=== PATIENT | male | born 1945 | race Caucasian/White ===

== ENCOUNTER 2017-02-24 08:26 | Inpatient (IN) | payer OTHER, MEDICARE ==
[~2017-02-24] VITALS: Ht 170.2 cm; Wt 53.0 kg
[2017-02-24] VITALS (7 sets, daily range): BP systolic 108–154; BP diastolic 57–97; PULSE 76–105; RESP 18–20; TEMP 96.9–98; O2SAT 95–98
[2017-02-24] MEDS ORDERED: SODIUM CHLOR 0.9% 1000 ML INJ 1,000 ML IV ONE (08:37)
--- NOTE | 2017-02-24 08:40 | PD ---
HPI Chief Complaint: altered mental status Time Seen by Provider: 08:36 Travel History International Travel<30 days: No Contact w/Intl Traveler<30days: No History of Present Illness HPI This is a 71 year old male who has a history of dementia and alcoholism who presents to the emergency department having been found by his family on a couch incontinent of urine, sleepy, appearing to have had a seizure. Patient has a history of seizures in the past. He is supposed to be on Dilantin. He drinks alcohol every day. EMS reports that both the patient and his son were poor historians. PFSH Past Medical History Depression: Yes Cancer: No Cardiovascular Problems: No Diminished Hearing: No Endocrine: No Gastrointestinal Disorders: No Genitourinary: No Immune Disorder: No Implanted Vascular Access Dvce: No Musculoskeletal: No Neurologic: Yes (LEFT SUBDURAL HYGROMAS WITH CRANIOTOMY NOV 2012) Reproductive: No Respiratory: No Seizures: Yes Past Surgical History Other Surgery: No Social History Alcohol Use: Yes (multiple years of drinking per son) Tobacco Use: Yes (1 PACK PER MONTH) Substance Use: No Allergies-Medications (Allergen,Severity, Reaction): Coded Allergies: No Known Allergies (Unverified , 02/24/17) UNOBTAINABLE (Unverified , 07/11/16) Reported Meds & Prescriptions Reported Meds & Active Scripts Active No Active Prescriptions or Reported Medications Review of Systems ROS Limitations: Poor Historian Physical Exam Narrative GENERAL: Threatened, frail, tremulous SKIN: Focused skin assessment warm and dry. HEAD: Atraumatic. Normocephalic. EYES: Pupils equal and round. No injection or drainage. ENT: Moist mucous membranes NECK: Trachea midline. CARDIOVASCULAR: Tachycardic. No murmur appreciated. RESPIRATORY: Clear to auscultation. Breath sounds equal bilaterally. GASTROINTESTINAL: Abdomen soft, non-tender, nondistended. MUSCULOSKELETAL: No obvious deformities. NEUROLOGICAL: Oriented to person but not time or place, appears to have some right sided neglect, moving all extremities, unable to follow commands for a thorough neurologic exam, seems to have expressive aphasia PSYCHIATRIC: Poor insight and judgment. Data Data Last Documented VS Vital Signs Date Time Temp Pulse Resp B/P Pulse Ox O2 Delivery O2 Flow Rate FiO2 02/24/17 11:08 99 18 125/62 97 Room Air 02/24/17 08:38 98.0 Orders Complete Blood Count With Diff (02/24/17 08:37) Alcohol (Ethanol) (02/24/17 08:37) Phenytoin (Dilantin) (02/24/17 08:37) Ct Brain W/O Iv Contrast(Rout) (02/24/17 ) Blood Glucose (02/24/17 08:37) Ecg Monitoring (02/24/17 08:37) Iv Access Insert/Monitor (02/24/17 08:37) Oximetry (02/24/17 08:37) Comprehensive Metabolic Panel (02/24/17 08:37) Sodium Chlor 0.9% 1000 Ml Inj (Ns 1000 M (02/24/17 08:37) Sodium Chloride 0.9% Flush (Ns Flush) (02/24/17 08:45) Lorazepam Inj (Ativan Inj) (02/24/17 08:45) Thiamine Inj (Thiamine Inj) (02/24/17 08:45) Urinalysis - C+S If Indicated (02/24/17 08:37) Cath For Specimen (02/24/17 08:38) Fosphenytoin Inj (Cerebyx Inj) (02/24/17 11:30) Labs Laboratory Tests Test 02/24/17 02/24/17 02/24/17 09:39 09:40 10:45 Urine Color YELLOW Urine Turbidity CLEAR Urine pH 6.5 Urine Specific [place] 1.008 Urine Protein NEG mg/dL Urine Glucose (UA) NEG mg/dL Urine Ketones TRACE mg/dL Urine Occult Blood SMALL Urine Nitrite NEG Urine Bilirubin NEG Urine Urobilinogen LESS THAN 2.0 MG/DL Urine Leukocyte Esterase NEG Urine RBC 1 /hpf Urine WBC 1 /hpf Microscopic Urinalysis Comment CULT NOT INDICATED White Blood Count 7.2 TH/MM3 Red Blood Count 4.00 MIL/MM3 Hemoglobin 14.6 GM/DL Hematocrit 41.4 % Mean Corpuscular Volume 103.4 FL Mean Corpuscular Hemoglobin 36.5 PG Mean Corpuscular Hemoglobin 35.3 % Concent Red Cell Distribution Width 13.3 % Platelet Count 243 TH/MM3 Mean Platelet Volume 7.7 FL Neutrophils (%) (Auto) 86.4 % Lymphocytes (%) (Auto) 6.2 % Monocytes (%) (Auto) 6.9 % Eosinophils (%) (Auto) 0.0 % Basophils (%) (Auto) 0.5 % Neutrophils # (Auto) 6.2 TH/MM3 Lymphocytes # (Auto) 0.4 TH/MM3 Monocytes # (Auto) 0.5 TH/MM3 Eosinophils # (Auto) 0.0 TH/MM3 Basophils # (Auto) 0.0 TH/MM3 CBC Comment DIFF FINAL Differential Comment Sodium Level 138 MEQ/L Potassium Level 4.3 MEQ/L Chloride Level 101 MEQ/L Carbon Dioxide Level 27.8 MEQ/L Anion Gap 9 MEQ/L Blood Urea Nitrogen 7 MG/DL Creatinine 0.90 MG/DL Estimat Glomerular Filtration 83 ML/MIN Rate Random Glucose 122 MG/DL Calcium Level 8.0 MG/DL Total Bilirubin 1.9 MG/DL Aspartate Amino Transf 90 U/L (AST/SGOT) Alanine Aminotransferase 39 U/L (ALT/SGPT) Alkaline Phosphatase 77 U/L Total Protein 6.0 GM/DL Albumin 3.1 GM/DL Phenytoin (Dilantin) Level LESS THAN 0.4 MCG/ML Ethyl Alcohol Level LESS THAN 3 MG/DL MDM Medical Decision Making Medical Screen Exam Complete: Yes Emergency Medical Condition: Yes Interpretation(s) Afebrile, mild tachycardia, hypertensive No leukocytosis Macrocytosis Total bilirubin is 1.9, patient has reported history of chronic alcoholism Dilantin level is less than 0.4 Differential Diagnosis Seizure, hemorrhagic stroke, ischemic stroke, alcoholism, medication noncompliance Narrative Course This is a 71-year-old male who presents to the emergency department having a suspected seizure at home. I don't have any family to obtain history from and I tried to call both his son and his daughter but they didn't answer. On exam he appears to have some expressive aphasia, doesn't follow commands appropriately, and seems to have some right sided neglect. It's unclear what time these symptoms started so I don't think he is a TPA candidate. Labs were obtained which were reassuring. CT was negative for intracranial hemorrhage. Patient was given a load of Dilantin given he's been on it in the past, as well as a milligram of Ativan in the setting of likely early alcohol withdrawal and patient will be admitted for possible stroke evaluation. Diagnosis Primary Impression: Altered mental status Qualified Code: R41.82 - Altered mental status, unspecified altered mental status type Admitting Information Admitting Physician Requests: Admit Referrals: Smooth Nelson PhD MD Additional Instructions: Take Dilantin every day. Follow-up with a neurologist as soon as possible. Med/Other Pt SpecificInfo: Prescription(s) given Scripts Phenytoin Extended 100 Mg [id number] Mg PO TID #90 CAP Ref 0 Prov:Janel Blanca MD 02/24/17 Janel Blanca MD Feb 24, 2017 08:40
[2017-02-24] MEDS ORDERED: SODIUM CHLORIDE 0.9% FLUSH 10 ML FLUSH IVF PRN (08:45)
[2017-02-24] MEDS ORDERED: THIAMINE INJ 100 MG in SODIUM CHLORIDE 0.9% INJ 100 ML IV ONE (08:45)
[2017-02-24] MEDS ORDERED: LORazepam 2 MG/ML VIAL IVS ONE (08:45)
--- NOTE | 2017-02-24 09:32 | RADRPT ---
EXAM DATE/TIME: 02/24/2017 09:13 [facility] COMPARISON: MRI BRAIN W & W/O CONTRAST, November 06, 2014, 14:09. CT BRAIN W/O CONTRAST, July 12, 2016, 0: 16. INDICATIONS : Altered mental status, patient found down by family. Patient also had a seizure today. RADIATION DOSE: 35.12 CTDIvol (mGy) MEDICAL HISTORY : Seizures. Trauma brain injury,sub dural hygroma SURGICAL HISTORY : Craniotomy. ENCOUNTER: Initial ACUITY: 1 day PAIN SCALE: Non-responsive LOCATION: cranial TECHNIQUE: Multiple contiguous axial images were obtained of the head. Using automated exposure control and adj ustment of the mA and/or kV according to patient size, radiation dose was kept as low as reasonably a chievable to obtain optimal diagnostic quality images. FINDINGS: There is no evidence for intracranial hemorrhage, mass effect, mass lesions, or edema. The visualize d bony structures appear intact. Slight degree of brain atrophy is seen. Slight periventricular whit e matter changes are seen nonspecific mostly consistent with chronic small vessel ischemic changes. There are no signs of acute infarction for technique. The left optical lens is dislocated and lies in the dependent portion of vitreous body. CONCLUSION: 1. Slight atrophic and small vessel ischemic changes without any evidence for acute hemorrhage or mas s effect. 2. Dislocated left optical lens. Rl Amaro MD on February 24, 2017 at 9:24 Board Certified Radiologist. This report was verified electronically.
[2017-02-24 10:11] LABS: AUTOMATED NEUTROPHIL # 6.2 TH/MM3 (1.8-7.7); BASOPHIL % 0.5 % (0.0-2.0); HEMATOCRIT 41.4 % (39.0-51.0); HEMO FLAGS DIFF FINAL; LYMPH % 6.2 % (9.0-44.0); LYMPHOCYTE # 0.4 TH/MM3 (1.0-4.8); MEAN CELL VOLUME 103.4 FL (80.0-100.0); MEAN CORPUSCULAR HEMOGLOBIN 36.5 PG (27.0-34.0); MEAN CORPUSCULAR HGB CONC 35.3 % (32.0-36.0); MONO % 6.9 % (0.0-8.0); NEUT % 86.4 % (16.0-70.0); PLATELET COUNT 243 TH/MM3 (150-450); RED CELL DISTRIBUTION WIDTH 13.3 % (11.6-17.2); WHITE BLOOD COUNT 7.2 TH/MM3 (4.0-11.0)
[2017-02-24 10:13] LABS: BLOOD, URINE SMALL (NEG); GLUCOSE,URINE NEG (NEG); KETONE, URINE TRACE mg/dL (NEG); NITRITE,URINE NEG (NEG); PH, URINE 6.5 (5.0-8.5); URINE COLOR YELLOW (YELLW/STRAW)
[2017-02-24 10:25] LABS: COMMENT (UR) CULT NOT INDICATED; CULTURE IF INDICATED CULT NOT INDICATED
[2017-02-24 11:25] LABS: ALT (GPT) 39 U/L (12-78); ANION GAP 9 MEQ/L (5-15); AST (GOT) 90 U/L (15-37); BICARBONATE 27.8 MEQ/L (21.0-32.0); BLOOD UREA NITROGEN 7 MG/DL (7-18); CHLORIDE 101 MEQ/L (98-107); GLOMERULAR FILTRATION RATE 83 ML/MIN (>89); POTASSIUM 4.3 MEQ/L (3.5-5.1); SODIUM (NA) 138 MEQ/L (136-145)
[2017-02-24 11:27] LABS: ALKALINE PHOSPHATASE 77 U/L (45-117); TOTAL BILIRUBIN ADULT 1.9 MG/DL (0.2-1.0)
[2017-02-24] MEDS ORDERED: FOSPHENYTOIN INJ 1,000 MGPE in SODIUM CHLORIDE 0.9% INJ 50 ML IV ONE (11:30)
[2017-02-24] MEDS ORDERED: PHEN100C PO (11:38)
[2017-02-24] MEDS ORDERED: GLUCAGON 1 MG/ML VIAL IM/SQ PRN (12:15)
[2017-02-24] MEDS ORDERED: DEXTROSE 50% IN WATER 50 ML VIAL(D50) IV PUSH PRN (12:15)
[2017-02-24] MEDS ORDERED: LORazepam 2 MG/ML VIAL IV PUSH ONE ×2 (12:45→14:45)
[2017-02-24] MEDS ORDERED: ASPIRIN 81 MG CHEW TAB CHEW ONE (12:45)
[2017-02-24] MEDS ORDERED: PHENYTOIN 100 MG PO SCH (13:00)
[2017-02-24] MEDS ORDERED: PHENYTOIN SODIUM 100 MG CAP PO SCH (14:00)
--- NOTE | 2017-02-24 14:13 | HHI.HP ---
[facility] Service [facility] Primary Care Physician No Primary Care Physician Admission Diagnosis aphasia Diagnoses: Chief Complaint: Aphasia Travel History International Travel<30 Days: No Contact w/Intl Traveler <30 Da: No Traveled to Known Affected Are: No History of Present Illness This is a pleasant 71 year old male who has a history of dementia and alcoholism who presents to the emergency department having been found by his family on a couch incontinent of urine, sleepy, appearing to have had a seizure. Patient has a history of seizures in the past. He is supposed to be on Dilantin. He drinks alcohol every day. EMS reports that both the patient and his son were poor historians. Seen in Emergency room not able to take much history from the patient, he has history of seizure, Non compliance and ETOHism. 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 he had one Gram of Fosphenytoin, will continue Dilantin. Neurology specialist consult. he has Aphasia asked for Neurology specialist consult Past Family Social History Past Medical History Depression Left Subdural Hygromas with Craniotomy November 2012 Seizure disorder Past Surgical History Left subdural hematoma status post craniotomy in 2012 Reported Medications Current Medications Medications (Trade) Dose Ordered Sig/Emily Route Start Time Stop Time Status Last Admin (Dilantin) 100 mg Q8HR PO 02/24/17 14:00 (Aspirin) 325 mg DAILY PO 02/25/17 09:00 (NS Flush) 2 ml BID IV FLUSH 02/24/17 21:00 Sodium Chloride 2 ml 2 ml UNSCH PRN IV FLUSH 02/24/17 12:15 (NS 1000 ml Inj) 1,000 ml @ 70 mls/hr [id number] IV 02/24/17 12:07 (Pravachol) 40 mg HS PO 02/24/17 21:00 (D50w (Vial) Inj) 25 ml UNSCH PRN IV PUSH 02/24/17 12:15 (Glucagon Inj) 1 mg UNSCH PRN IM/SQ 02/24/17 12:15 (Lovenox Inj) 40 mg Q24H SQ 02/24/17 13:00 Allergies: Coded Allergies: No Known Allergies (Unverified , 02/24/17) UNOBTAINABLE (Unverified , 07/11/16) Active Ordered Medications Current Medications Medications (Trade) Dose Ordered Sig/Emily Route Start Time Stop Time Status Last Admin (Dilantin) 100 mg Q8HR PO 02/24/17 14:00 (Aspirin) 325 mg DAILY PO 02/25/17 09:00 (NS Flush) 2 ml BID IV FLUSH 02/24/17 21:00 Sodium Chloride 2 ml 2 ml UNSCH PRN IV FLUSH 02/24/17 12:15 (NS 1000 ml Inj) 1,000 ml @ 70 mls/hr [id number] IV 02/24/17 12:07 02/24/17 14:14 (Pravachol) 40 mg HS PO 02/24/17 21:00 (D50w (Vial) Inj) 25 ml UNSCH PRN IV PUSH 02/24/17 12:15 (Glucagon Inj) 1 mg UNSCH PRN IM/SQ 02/24/17 12:15 (Lovenox Inj) 40 mg Q24H SQ 02/24/17 13:00 02/24/17 14:15 Family History Asked to his son and states No for Hypertension, DM II or cancer Social History Alcohol abuse tobacco dependence 1 pack per month Physical Exam Vital Signs Vital Signs Date Time Temp Pulse Resp B/P Pulse Ox O2 Delivery O2 Flow Rate FiO2 02/24/17 12:28 98 21 02/24/17 11:08 99 18 125/62 97 Room Air 02/24/17 08:44 105 18 96 Room Air 02/24/17 08:42 96 Room Air 02/24/17 08:38 98.0 105 19 154/97 96 Physical Exam GENERAL: Threatened, frail, tremulous SKIN: Focused skin assessment warm and dry. HEAD: Atraumatic. Normocephalic. EYES: Pupils equal and round. No injection or drainage. ENT: Moist mucous membranes NECK: Trachea midline. CARDIOVASCULAR: Tachycardic. No murmur appreciated. RESPIRATORY: Clear to auscultation. Breath sounds equal bilaterally. GASTROINTESTINAL: Abdomen soft, non-tender, nondistended. MUSCULOSKELETAL: No obvious deformities. NEUROLOGICAL: Oriented to person but not time or place, appears to have some right sided neglect, moving all extremities, unable to follow commands for a thorough neurologic exam, seems to have expressive aphasia PSYCHIATRIC: Poor insight and judgment. Laboratory Laboratory Tests Test 02/24/17 02/24/17 02/24/17 09:39 09:40 10:45 Urine Color YELLOW Urine Turbidity CLEAR Urine pH 6.5 Urine Specific [place] 1.008 Urine Protein NEG Urine Glucose (UA) NEG Urine Ketones TRACE Urine Occult Blood SMALL Urine Nitrite NEG Urine Bilirubin NEG Urine Urobilinogen LESS THAN 2.0 Urine Leukocyte Esterase NEG Urine RBC 1 Urine WBC 1 Microscopic Urinalysis Comment CULT NOT INDICATED White Blood Count 7.2 Red Blood Count 4.00 Hemoglobin 14.6 Hematocrit 41.4 Mean Corpuscular Volume 103.4 Mean Corpuscular Hemoglobin 36.5 Mean Corpuscular Hemoglobin 35.3 Concent Red Cell Distribution Width 13.3 Platelet Count 243 Mean Platelet Volume 7.7 Neutrophils (%) (Auto) 86.4 Lymphocytes (%) (Auto) 6.2 Monocytes (%) (Auto) 6.9 Eosinophils (%) (Auto) 0.0 Basophils (%) (Auto) 0.5 Neutrophils # (Auto) 6.2 Lymphocytes # (Auto) 0.4 Monocytes # (Auto) 0.5 Eosinophils # (Auto) 0.0 Basophils # (Auto) 0.0 CBC Comment DIFF FINAL Differential Comment Sodium Level 138 Potassium Level 4.3 Chloride Level 101 Carbon Dioxide Level 27.8 Anion Gap 9 Blood Urea Nitrogen 7 Creatinine 0.90 Estimat Glomerular Filtration 83 Rate Random Glucose 122 Calcium Level 8.0 Total Bilirubin 1.9 Aspartate Amino Transf 90 (AST/SGOT) Alanine Aminotransferase 39 (ALT/SGPT) Alkaline Phosphatase 77 Total Protein 6.0 Albumin 3.1 Phenytoin (Dilantin) Level LESS THAN 0.4 Ethyl Alcohol Level LESS THAN 3 Result Diagram: 02/24/17 0940 02/24/17 1045 Imaging Last Impressions Head CT 02/24/17 0000 Signed Impressions: Service Date/Time: Friday, February 24, 2017 09:13 - CONCLUSION: 1. Slight atrophic and small vessel ischemic changes without any evidence for acute hemorrhage or mass effect. 2. Dislocated left optical lens. Rl Amaro MD Assessment and Plan Assessment and Plan 1. Ischemic Stroke 2. Seizure Disorder, status post Fosphenytoin 1 gram loading dose and continue Dilantin 100 mg TID Seizure precautions and fall precautions, Telemetry, PT, OT and Speech Therapy, CT brain did not revealed pathology, Neurology specialist consult. 3. Severe medical non compliance. 4. ETOH abuse, continue Thiamine, Multivitamins, Folic Acid, CIWA proocol. DVT prophylaxisSCDs Code Status Discussed with his Son Mr. Omar Quan to the phone number [phone] talked about his father, poor historian but when I asked him about his Code status told me to call him if something happen, but full management at this time has to be done. Full Code at this time. will consult Palliative care to help me define the patient condition. and high probability for Complications if the patient continue this kind of behavior. Discussed Condition With Discussed with Emergency Medicine Physician Doctor Janel Blanca Physician Certification 2 Midnight Certification Type: Admission for Inpatient Services Order for Inpatient Services The services are ordered in accordance with Medicare regulations or non- Medicare payer requirements, as applicable. In the case of services not specified as inpatient-only, they are appropriately provided as inpatient services in accordance with the 2-midnight benchmark. Estimated LOS (days): 3 days is the estimated time the patient will need to remain in the hospital, assuming treatment plan goals are met and no additional complications. Post-Hospital Plan: Not yet determined Willie Ocasio MD Feb 24, 2017 14:13
[2017-02-24] MEDS: SODIUM CHLOR 0.9% 1000 ML INJ 1,000 ML IV SCH (14:14)
[2017-02-24] MEDS: ENOXAPARIN SODIUM 40 MG/0.4 ML SYRINGE SQ SCH (14:15)
[2017-02-24 14:27] LABS: CREATINE KINASE 150 U/L (39-308)
[2017-02-24 14:50] LABS: FREE T4 0.84 NG/DL (0.76-1.46)
[2017-02-24] MEDS: INSULIN ASPART SUPPLEMENTAL SCALE SQ SCH ×2 (16:00→21:00)
--- NOTE | 2017-02-24 17:03 | RADRPT ---
EXAM DATE/TIME: 02/24/2017 16:24 [facility] COMPARISON: MRI BRAIN W & W/O CONTRAST, November 06, 2014, 14:09. INDICATIONS : CVA. MEDICAL HISTORY : Seizures. SURGICAL HISTORY : Craniotomy. ENCOUNTER: Initial ACUITY: 1 day PAIN SCORE: Nonresponsive. LOCATION: Bilateral cranial TECHNIQUE: Multiplanar, multisequence MRI of the brain was performed without contrast. FINDINGS: There is no evidence for intracranial hemorrhage, mass effect, mass lesions, edema, or extra-axial fl uid collections. There are no signs of acute infarction for technique. The diffusion portion is unr emarkable. Slight degree of brain atrophy is seen. Slight periventricular white matter changes are se en nonspecific mostly consistent with chronic small vessel ischemic changes. There is encephalomalaci a involving the left temporal tip within the middle cranial fossa. IMPRESSION: Chronic small vessel ischemic and atrophic changes not changed since 2013. Rl Amaro MD on February 24, 2017 at 16:58 Board Certified Radiologist. This report was verified electronically.
--- NOTE | 2017-02-24 17:22 | RADRPT ---
EXAM DATE/TIME: 02/24/2017 16:24 [facility] COMPARISON: MRI BRAIN W/O CONTRAST, February 24, 2017, 16:24. INDICATIONS : CVA. MEDICAL HISTORY : Seizures. SURGICAL HISTORY : Craniotomy. ENCOUNTER: Initial ACUITY: 1 day PAIN SCORE: Nonresponsive. LOCATION: Bilateral cranial Please note a normal MRA of the brain does not entirely exclude the possibility of a small aneurysm, nor the possibility of distal intracranial vessel disease. TECHNIQUE: 3D time of flight MRA was performed. Source images, multiplanar STS MIP, and 3D volume MIP reconstru ctions were reviewed. FINDINGS: There is atherosclerotic disease involving multiple branches bilaterally. There is no evidence for a neurysm, vessel truncation or stenosis, and no evidence for vascular malformation. The examination is limited due to motion artifact. A1 appears hypoplastic on the left. CONCLUSION: Chronic atherosclerotic changes of multiple small vessel branches bilaterally. Rl Amaro MD on February 24, 2017 at 17:17 Board Certified Radiologist. This report was verified electronically.
[2017-02-24] MEDS ORDERED: LORazepam 2 MG/ML VIAL IV PUSH PRN ×3 (18:00→18:15)
[2017-02-24] MEDS: FOSPHENYTOIN SODIUM 100 MG PE/2 ML VIAL IV SCH (18:00)
[2017-02-24] MEDS ORDERED: LORazepam 1 MG TAB PO PRN (18:15)
[2017-02-24] MEDS ORDERED: LORazepam 2 MG TAB PO PRN (18:15)
[2017-02-24] MEDS ORDERED: FLUMAZENIL 0.5 MG/5 ML VIAL IV PUSH PRN (18:15)
[2017-02-24] MEDS: PRAVASTATIN SOD 40 MG TAB PO SCH (21:00)
[2017-02-24] MEDS: SODIUM CHLORIDE 0.9% FLUSH 10 ML FLUSH IV FLUSH SCH (21:00)
--- NOTE | 2017-02-24 23:39 | RADRPT ---
EXAM DATE/TIME: 02/24/2017 22:52 [facility] COMPARISON: No previous studies available for comparison. INDICATIONS : Transient ischemic attack. MEDICAL HISTORY : Dementia. ETOH abuse.Seizures. Left subdural hygromas. Traumatic brain injury. Depression. SURGICAL HISTORY : Craniotomy. ENCOUNTER: Initial ACUITY: 1 day PAIN SCORE: 0/10 LOCATION: Bilateral neck PEAK SYSTOLIC VELOCITIES (cm/sec): ICA/CCA RATIO: Right: 1.2 Left: 1.1 ICA: Right: 92 Left: 91 CCA: Right: 78 Left: 81 ECA: Right: 59 Left: 74 VERTEBRAL: Right: 81 antegrade Left: 37 antegrade Elevated flow velocities and ICA/CCA ratios have been found to correlate with increased degrees of vessel stenosis, calculated as percentage of diameter relative to a normal segment of distal ICA/CCA FINDINGS: RIGHT CAROTID: No significant stenosis is visualized. The waveforms are within normal limits. LEFT CAROTID: No significant stenosis is visualized. The waveforms are within normal limits. VERTEBRAL ARTERIES: Antegrade flow is seen in both vertebral arteries. MISCELLANEOUS: None. CONCLUSION: Normal examination. Pankaj Fong MD on February 24, 2017 at 23:38 Board Certified Radiologist. This report was verified electronically.
[2017-02-25] VITALS (8 sets, daily range): BP systolic 97–147; BP diastolic 57–74; PULSE 63–78; RESP 18–20; TEMP 94–97; O2SAT 94–100
[2017-02-25] MEDS: LORazepam 2 MG/ML VIAL IV PUSH PRN (00:08)
[2017-02-25 00:12] LABS: CREATINE KINASE 778 U/L (39-308)
[2017-02-25 00:26] LABS: CKMB 19.4 NG/ML (0.5-3.6)
[2017-02-25] MEDS: THIAMINE INJ 100 MG in SODIUM CHLORIDE 0.9% INJ 100 ML IV SCH ×2 (00:36→22:04)
[2017-02-25] MEDS: MULTIVITAMIN INJ 10 ML, FOLIC ACID INJ 1 MG in SODIUM CHLORID 0.9% 500 ML INJ 500 ML IV SCH ×2 (00:37→22:04)
[2017-02-25] MEDS: FOSPHENYTOIN SODIUM 100 MG PE/2 ML VIAL IV SCH ×2 (02:18→14:29)
--- NOTE | 2017-02-25 06:09 | MB ---
cc: JAVIER SANTIAGO M.D. DATE OF CONSULTATION 02/24/2017 REASON FOR CONSULTATION Stroke. HISTORY OF PRESENT ILLNESS Mr. Dominguez is a 71-year-old man with a history of dementia, alcohol abuse, came to the ER after he was found at home incontinent of urine, very lethargic, possibly postictal after a seizure. He does have a history of seizures in the past. Apparently he was supposedly to be on Dilantin but has been noncompliant. The patient developed an aphasia as well, difficulty speaking. He was loaded with 1 gram of fosphenytoin in the ER. PAST MEDICAL HISTORY 1. History of subdural hematoma treated with craniotomy. 2. History of seizure disorder in the past. ALLERGIES None known. CURRENT MEDICATIONS 1. Aspirin 325 mg daily. 2. Pravachol 40 mg daily. 3. Dilantin 100 mg q.8 hours. 4. Lovenox 40 mg subcu daily. 5. He did receive 1 gram of fosphenytoin. NEUROLOGIC EXAMINATION Blood pressure 125/62, pulse 99, respiratory rate is 18. Temperature is 98 degrees. Higher cortical function: The patient is alert. He talks in phrases that are nonsensical. He does not follow commands. Cranial nerves intact. Motor exam: I do not see any gross focal deficits, seems to move both sides equally. IMAGING STUDIES CT of the brain shows slight atrophy, small vessel ischemic change. Dislocated left optical lens. No acute change seen. He did have an MRI of the brain done, chronic changes and atrophy, no acute change. No acute stroke identified. He had an MRA of the brain done as well showing atherosclerosis but no aneurysm. LABORATORY DATA White count 7200, hemoglobin 14.6, hematocrit 41%, platelet count 243,000. His sodium is 138, potassium 4.3, chloride 101, BUN is 7, creatinine 0.9, B12 643. Troponin level on admission less than 0.4. IMPRESSION I suspect he may be experiencing a postictal phase following a seizure. RECOMMENDATIONS 1. Continue the patient on Dilantin. We will switch to IV form. 2. Obtain an EEG. Place him under seizure precautions. 3. We will obtain a carotid ultrasound as well as an echocardiogram. MD NANDINI Barrios/DALILA /5:52 PM /5:58 AM
[2017-02-25] MEDS: INSULIN ASPART SUPPLEMENTAL SCALE SQ SCH ×4 (07:00→21:00)
[2017-02-25] MEDS: ASPIRIN 325 MG TAB PO SCH (08:38)
[2017-02-25] MEDS: SODIUM CHLORIDE 0.9% FLUSH 10 ML FLUSH IV FLUSH SCH ×2 (09:00→22:05)
[2017-02-25 10:32] LABS: HDL CHOLESTEROL 91.3 MG/DL (40.0-60.0); LDL CHOLESTEROL 24 MG/DL (0-99)
[2017-02-25 10:35] LABS: CREATINE KINASE 767 U/L (39-308)
[2017-02-25 10:47] LABS: CKMB 17.8 NG/ML (0.5-3.6)
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
--- NOTE | 2017-02-25 11:54 | HHI.PR ---
Subjective Remarks This is a pleasant 71 year old male who has a history of dementia and alcoholism who presents to the emergency department having been found by his family on a couch incontinent of urine, sleepy, appearing to have had a seizure. Patient has a history of seizures in the past. He is supposed to be on Dilantin. He drinks alcohol every day. EMS reports that both the patient and his son were poor historians. Seen in Emergency room not able to take much history from the patient, he has history of seizure, Non compliance and ETOHism. 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 he had one Gram of Fosphenytoin, will continue Dilantin. Neurology specialist consult. he has Aphasia asked for Neurology specialist consult 02/25: Seen in the present of his Son Mr. Kadeem Perez, patient improving condition, continue CIWA protocol added Librium and following Neurology specialist following. Objective Vital Signs Date Time Temp Pulse Resp B/P Pulse Ox O2 Delivery O2 Flow Rate FiO2 02/25/17 10:58 99 21 02/25/17 08:00 95.9 78 20 124/73 100 02/25/17 04:00 95.6 71 18 129/61 98 02/25/17 00:53 94.0 74 18 97/57 94 02/24/17 21:11 96.9 98 20 124/67 96 02/24/17 16:58 76 18 112/67 97 Room Air 02/24/17 14:46 90 18 108/57 95 Room Air 02/24/17 12:28 98 21 I/O 02/24/17 02/24/17 02/24/17 02/25/17 02/25/17 02/25/17 07:00 15:00 23:00 07:00 15:00 23:00 Output Total 500 ml Balance -500 ml Output Urine Total 500 ml # Voids 1 1 Result Diagram: 02/24/17 0940 02/24/17 1045 Imaging Last Impressions Head Magnetic Resonance Angiography 02/24/17 0000 Signed Impressions: Service Date/Time: Friday, February 24, 2017 16:24 - CONCLUSION: Chronic atherosclerotic changes of multiple small vessel branches bilaterally. Rl Amaro MD Head CT 02/24/17 0000 Signed Impressions: Service Date/Time: Friday, February 24, 2017 09:13 - CONCLUSION: 1. Slight atrophic and small vessel ischemic changes without any evidence for acute hemorrhage or mass effect. 2. Dislocated left optical lens. Rl Amaro MD Carotid Artery Ultrasound 02/24/17 0000 Signed Impressions: Service Date/Time: Friday, February 24, 2017 22:52 - CONCLUSION: Normal examination. Pankaj Fong MD Procedures No procedures performed. Other Results Laboratory Tests Test 02/24/17 02/24/17 02/24/17 02/24/17 09:39 09:40 10:45 13:54 Urine Color YELLOW Urine Turbidity CLEAR Urine pH 6.5 Urine Specific [place] 1.008 Urine Protein NEG mg/dL Urine Glucose (UA) NEG mg/dL Urine Ketones TRACE mg/dL Urine Occult Blood SMALL Urine Nitrite NEG Urine Bilirubin NEG Urine Urobilinogen LESS THAN 2.0 MG/DL Urine Leukocyte Esterase NEG Urine RBC 1 /hpf Urine WBC 1 /hpf Microscopic Urinalysis Comment CULT NOT INDICATED White Blood Count 7.2 TH/MM3 Red Blood Count 4.00 MIL/MM3 Hemoglobin 14.6 GM/DL Hematocrit 41.4 % Mean Corpuscular Volume 103.4 FL Mean Corpuscular Hemoglobin 36.5 PG Mean Corpuscular Hemoglobin 35.3 % Concent Red Cell Distribution Width 13.3 % Platelet Count 243 TH/MM3 Mean Platelet Volume 7.7 FL Neutrophils (%) (Auto) 86.4 % Lymphocytes (%) (Auto) 6.2 % Monocytes (%) (Auto) 6.9 % Eosinophils (%) (Auto) 0.0 % Basophils (%) (Auto) 0.5 % Neutrophils # (Auto) 6.2 TH/MM3 Lymphocytes # (Auto) 0.4 TH/MM3 Monocytes # (Auto) 0.5 TH/MM3 Eosinophils # (Auto) 0.0 TH/MM3 Basophils # (Auto) 0.0 TH/MM3 CBC Comment DIFF FINAL Differential Comment Sodium Level 138 MEQ/L Potassium Level 4.3 MEQ/L Chloride Level 101 MEQ/L Carbon Dioxide Level 27.8 MEQ/L Anion Gap 9 MEQ/L Blood Urea Nitrogen 7 MG/DL Creatinine 0.90 MG/DL Estimat Glomerular Filtration 83 ML/MIN Rate Random Glucose 122 MG/DL Calcium Level 8.0 MG/DL Total Bilirubin 1.9 MG/DL Aspartate Amino Transf 90 U/L (AST/SGOT) Alanine Aminotransferase 39 U/L (ALT/SGPT) Alkaline Phosphatase 77 U/L Total Protein 6.0 GM/DL Albumin 3.1 GM/DL Ethyl Alcohol Level LESS THAN 3 MG/DL Vitamin B12 Level 643 PG/ML Folate 6.2 NG/ML Free Thyroxine 0.84 NG/DL Thyroid Stimulating Hormone 0.543 uIU/ML 3rd Gen Test 02/25/17 07:16 Total Creatine Kinase 767 U/L Creatine Kinase MB 17.8 NG/ML Creatine Kinase MB % 2.3 % Troponin I LESS THAN 0.02 NG/ML Triglycerides Level 61 MG/DL Cholesterol Level 127 MG/DL LDL Cholesterol 24 MG/DL HDL Cholesterol 91.3 MG/DL Cholesterol/HDL Ratio 1.39 RATIO Phenytoin (Dilantin) Level 13.8 MCG/ML Objective Remarks GENERAL: No Acute distress. SKIN: Focused skin assessment warm and dry. HEAD: Atraumatic. Normocephalic. EYES: Pupils equal and round. No injection or drainage. ENT: Moist mucous membranes NECK: Trachea midline. CARDIOVASCULAR: Tachycardic. No murmur appreciated. RESPIRATORY: Clear to auscultation. Breath sounds equal bilaterally. GASTROINTESTINAL: Abdomen soft, non-tender, nondistended. MUSCULOSKELETAL: No obvious deformities. NEUROLOGICAL: Alert and oriented x 3. No focal deficits. PSYCHIATRIC: Good mood Medications and IVs Current Medications Medications (Trade) Dose Ordered Sig/Emily Route Start Time Stop Time Status Last Admin (Aspirin) 325 mg DAILY PO 02/25/17 09:00 02/25/17 08:38 (NS Flush) 2 ml BID IV FLUSH 02/24/17 21:00 Sodium Chloride 2 ml 2 ml UNSCH PRN IV FLUSH 02/24/17 12:15 (NS 1000 ml Inj) 1,000 ml @ 70 mls/hr [id number] IV 02/24/17 12:07 02/24/17 14:14 (Pravachol) 40 mg HS PO 02/24/17 21:00 02/24/17 21:00 (D50w (Vial) Inj) 25 ml UNSCH PRN IV PUSH 02/24/17 12:15 (Glucagon Inj) 1 mg UNSCH PRN IM/SQ 02/24/17 12:15 (Lovenox Inj) 40 mg Q24H SQ 02/24/17 13:00 02/24/17 14:15 (Cerebyx Inj) 100 mgpe Q8H IV 02/24/17 18:00 02/25/17 02:18 Lorazepam 1 mg 1 mg Q4H PRN IV PUSH 02/24/17 18:00 Multivitamins 10 ml/Folic Acid 1 mg/Sodium Chloride 510.2 ml @ 125 mls/hr Q24H IV 02/24/17 20:00 03/01/17 19:59 02/25/17 00:37 (Thiamine Inj/NS Inj) 101 ml @ 100 mls/hr Q24H IV 02/24/17 20:00 02/27/17 19:59 02/25/17 00:36 (Romazicon Inj) 0.2 mg Q1M PRN IV PUSH 02/24/17 18:15 (Ativan) 1 mg Q4H PRN PO 02/24/17 18:15 (Ativan Inj) 1 mg Q4H PRN IV PUSH 02/24/17 18:15 (Ativan) 2 mg Q2H PRN PO 02/24/17 18:15 (Ativan Inj) 2 mg Q2H PRN IV PUSH 02/24/17 18:15 02/25/17 00:08 (Ativan Inj) 2 mg Q1H PRN IV PUSH 02/24/17 18:15 (Ativan Inj) 2 mg Q15M PRN IV PUSH 02/24/17 18:15 A/P Assessment and Plan 1. Ruled out Ischemic Stroke 2. Seizure Disorder, status post Fosphenytoin 1 gram loading dose and continue Dilantin 100 mg TID Seizure precautions and fall precautions, Telemetry, PT, OT and Speech Therapy, CT brain did not revealed pathology, Neurology specialist following, switch Cerebyx to by mouth 3. Severe medical non compliance. 4. ETOH abuse, continue Thiamine, Multivitamins, Folic Acid, CIWA protocol. strongly recommended to stop drinking behavior his son states he won't stop drinking alcohol. 5. Rhabdomyolysis continue IV fluids may need to increase IV fluids to 125 ml per hour. DVT prophylaxisLovenox. Code Status Full Code Discussed Condition With Son Mr. Omar Quan Present at this time in the room his phone number [phone] Discharge Planning Expected in one to two days. Willie Ocasio MD Feb 25, 2017 11:54
[2017-02-25] MEDS: ENOXAPARIN SODIUM 40 MG/0.4 ML SYRINGE SQ SCH (14:48)
--- NOTE | 2017-02-25 15:31 | EC ---
Study Study Date:02/25/2017 STUDY CONCLUSIONS SUMMARY LEFT VENTRICLE: The cavity size was normal. Wall thickness was normal. Systolic function was normal. The estimated ejection fraction was in the range of 55% to 60%. Wall motion was normal; there were no regional wall motion abnormalities. If LV function is below 40, please consider prescribing an ACEI or ARB or document rationale for non-use. PROCEDURE DATA STUDY STATUS: Elective. Procedure: Transthoracic echocardiography. Image quality was poor. Scanning was performed from the subcostal acoustic windows. Study completion: The patient tolerated the procedure well. Transthoracic echocardiography. M-mode, complete 2D, complete spectral Doppler, and color Doppler. Patient status: Inpatient. CARDIAC ANATOMY LEFT VENTRICLE: The cavity size was normal. Wall thickness was normal. Systolic function was normal. The estimated ejection fraction was in the range of 55% to 60%. Wall motion was normal; there were no regional wall motion abnormalities. AORTIC VALVE: Trileaflet; normal thickness leaflets. Doppler: Transvalvular velocity was within the normal range. There was no stenosis. No regurgitation. AORTA: Aortic root: The aortic root was normal in size. MITRAL VALVE: Structurally normal valve. Doppler: Transvalvular velocity was within the normal range. There was no evidence for stenosis. No regurgitation. Peak gradient: 2mm Hg (D). LEFT ATRIUM: The atrium was normal in size. RIGHT VENTRICLE: The cavity size was normal. Wall thickness was normal. PULMONIC VALVE: Doppler: Transvalvular velocity was within the normal range. There was no evidence for stenosis. No regurgitation. TRICUSPID VALVE: Structurally normal valve. Doppler: Transvalvular velocity was within the normal range. No regurgitation. PULMONARY ARTERY: The main pulmonary artery was normal-sized. Systolic pressure was within the normal range. RIGHT ATRIUM: The atrium was normal in size. PERICARDIUM: There was no pericardial effusion. SYSTEMIC VEINS: Inferior vena cava: The vessel was normal in size. BASIC MEASUREMENTS ADULT NORMAL Left ventricle LV internal dimension, ED 42.8 mm 37-56 LV internal dimension, ES 31.5 mm Fractional shortening *26 % 29-45 LV posterior wall, ED *13.5 mm 6-11 Septal/posterior wall ratio, ED 0.75 Relative wall thickness, ED *0.63 <0.45 Volume, ED, Teichholz 82.2 ml Volume, ES, Teichholz 39.4 ml Ejection fraction, Teichholz *52.1 % 64-83 Stroke volume, Teichholz 42.8 ml Wall mass 178.9 g Ventricular septum Septal thickness, ED 10.1 mm Right ventricle RV internal dimension, ED 17.4 mm DOPPLER MEASUREMENTS ADULT NORMAL Mitral valve Peak E-wave velocity 79 cm/s Peak A-wave velocity 82.9 cm/s Deceleration time *144 ms 150-230 Peak gradient, D 2 mm Hg Peak E/A ratio 1 LEGEND: Mean values are shown as u=mean value. Asterisk (*) alston values outside specified normal range. Prepared and signed by Sarita Pichardo [id number]
[2017-02-25] MEDS: SODIUM CHLOR 0.9% 1000 ML INJ 1,000 ML IV SCH (16:43)
[2017-02-25] MEDS ORDERED: chlordiazePOXIDE 25 MG CAP PO PRN (16:45)
[2017-02-25 17:27] LABS: HEMOGLOBIN A1a 1.1 %; HEMOGLOBIN A1b 0.7 %; HEMOGLOBIN Ao 87.3 %; HEMOGLOBIN F 0.8 %; HEMOGLOBIN LA1C 1.6 %
--- NOTE | 2017-02-25 20:48 | HHI.PR ---
Review/Management Diagnosis seizure with post ictal state---improving ETOH abuse Plan change cerebyx to po dilantin. Diagnosis/Plan: Subjective Subjective Comments No acute events reported No headache no recurrent sz. Active Medications Current Medications Medications (Trade) Dose Ordered Sig/Emily Route Start Time Stop Time Status Last Admin (Aspirin) 325 mg DAILY PO 02/25/17 09:00 02/25/17 08:38 (NS Flush) 2 ml BID IV FLUSH 02/24/17 21:00 Sodium Chloride 2 ml 2 ml UNSCH PRN IV FLUSH 02/24/17 12:15 (NS 1000 ml Inj) 1,000 ml @ 70 mls/hr [id number] IV 02/24/17 12:07 02/24/17 14:14 (Pravachol) 40 mg HS PO 02/24/17 21:00 02/24/17 21:00 (D50w (Vial) Inj) 25 ml UNSCH PRN IV PUSH 02/24/17 12:15 (Glucagon Inj) 1 mg UNSCH PRN IM/SQ 02/24/17 12:15 (Lovenox Inj) 40 mg Q24H SQ 02/24/17 13:00 02/25/17 14:48 Lorazepam 1 mg 1 mg Q4H PRN IV PUSH 02/24/17 18:00 Multivitamins 10 ml/Folic Acid 1 mg/Sodium Chloride 510.2 ml @ 125 mls/hr Q24H IV 02/24/17 20:00 03/01/17 19:59 02/25/17 00:37 (Thiamine Inj/NS Inj) 101 ml @ 100 mls/hr Q24H IV 02/24/17 20:00 02/27/17 19:59 02/25/17 00:36 (Romazicon Inj) 0.2 mg Q1M PRN IV PUSH 02/24/17 18:15 (Ativan) 1 mg Q4H PRN PO 02/24/17 18:15 (Ativan Inj) 1 mg Q4H PRN IV PUSH 02/24/17 18:15 (Ativan) 2 mg Q2H PRN PO 02/24/17 18:15 (Ativan Inj) 2 mg Q2H PRN IV PUSH 02/24/17 18:15 02/25/17 00:08 (Ativan Inj) 2 mg Q1H PRN IV PUSH 02/24/17 18:15 (Ativan Inj) 2 mg Q15M PRN IV PUSH 02/24/17 18:15 (Cerebyx Inj) 100 mgpe Q8HR IV 02/25/17 22:00 (Librium) 25 mg TID PRN PO 02/25/17 16:45 Allergies Allergies Coded Allergies No Known Allergies (Unverified02/24/17) UNOBTAINABLE (Unverified07/11/16) Review of Systems All other ROS: ROS reviewed as documented in chart Exam I&O / VS 02/24/17 02/24/17 02/25/17 15:00 23:00 07:00 Output Total 500 ml Balance -500 ml Output Urine Total 500 ml # Voids 1 1 Vital Signs Date Time Temp Pulse Resp B/P Pulse Ox O2 Delivery O2 Flow Rate FiO2 02/25/17 18:45 99 21 02/25/17 15:55 96.5 75 18 108/60 100 02/25/17 12:00 96.0 76 20 115/59 100 02/25/17 10:58 99 21 02/25/17 08:00 95.9 78 20 124/73 100 02/25/17 04:00 95.6 71 18 129/61 98 02/25/17 00:53 94.0 74 18 97/57 94 02/24/17 21:11 96.9 98 20 124/67 96 General: Mild distress Eye: EOMI Respiratory: Lungs CTA Cardiology: Normal rate Exam Comments more alert, oriented times two, speech fluent and follow simple commands CN 2-12 normal Motor 5/5 bue and ble Objective Radiology Results MRI brain--atrophy and chronic ischemic changes with no acute change Micro and Labs Laboratory Tests Test 02/24/17 02/25/17 22:49 07:16 Total Creatine Kinase 778 767 Creatine Kinase MB 19.4 17.8 Creatine Kinase MB % 2.5 2.3 Troponin I LESS THAN 0.02 LESS THAN 0.02 Triglycerides Level 61 Cholesterol Level 127 LDL Cholesterol 24 HDL Cholesterol 91.3 Cholesterol/HDL Ratio 1.39 Phenytoin (Dilantin) Level 13.8 Smooth Nelson PhD Feb 25, 2017 20:48
[2017-02-25] MEDS ORDERED: FOSPHENYTOIN SODIUM 100 MG PE/2 ML VIAL IV SCH (22:00)
[2017-02-25] MEDS: PRAVASTATIN SOD 40 MG TAB PO SCH (22:05)
[2017-02-25] MEDS: PHENYTOIN SODIUM 100 MG CAP PO SCH (22:05)
--- NOTE | 2017-02-25 22:35 | MG ---
cc: WAI KRAUSE M.D. Lab No: Date: 02/25/2017 Age: Sex: M Race: REQUESTING PHYSICIAN Dr. Nelson INTRODUCTION An EEG was obtained on this 71-year-old patient with a history of previously abnormal EEG in the left temporal region from September of 2015 and admitted for possible seizure. DESCRIPTION The patient is described as awake and asleep. Hyperventilation was not performed. The EEG is showing essentially continued slower rhythms on the left hemisphere characterized by some theta and delta activity while the right hemisphere rhythms appear more normal. There are beta rhythms centrally and frontally bilaterally. The background appears to be reactive, more so on the right than left. Intermittently there is awake and asleep. There is lot of artifact when awake. There are no distinct paroxysmal discharges. Hyperventilation was not performed and photic stimulation disclosed no change. INTERPRETATION Abnormal EEG because of continuous mild left hemisphere slowing suggesting left hemisphere structural abnormality. No distinct epileptiform features present. The findings suggest left hemisphere structural dysfunction. Clinical correlation. Wai Krause MD OFC/KK /9:40 PM /10:32 PM
[2017-02-26] VITALS (8 sets, daily range): BP systolic 115–137; BP diastolic 59–79; PULSE 69–96; RESP 18–20; TEMP 95.3–97.2; O2SAT 96–100
[2017-02-26] MEDS: PHENYTOIN SODIUM 100 MG CAP PO SCH ×3 (06:33→21:34)
[2017-02-26] MEDS: INSULIN ASPART SUPPLEMENTAL SCALE SQ SCH ×4 (07:00→21:00)
--- NOTE | 2017-02-26 08:42 | HHI.PR ---
Subjective Remarks This is a pleasant 71 year old male who has a history of dementia and alcoholism who presents to the emergency department having been found by his family on a couch incontinent of urine, sleepy, appearing to have had a seizure. Patient has a history of seizures in the past. He is supposed to be on Dilantin. He drinks alcohol every day. EMS reports that both the patient and his son were poor historians. Seen in Emergency room not able to take much history from the patient, he has history of seizure, Non compliance and ETOHism. 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 he had one Gram of Fosphenytoin, will continue Dilantin. Neurology specialist consult. he has Aphasia asked for Neurology specialist consult 02/25: Seen in the present of his Son Mr. Kadeem Perez, patient improving condition, continue CIWA protocol added Librium and following Neurology specialist following. 02/26: Patient stable no complaint, alert and oriented x 3. added Lactulose to avoid Ammonia level accumulation, no nausea, vomit or diarrhea Discussed with nurse Mr. Lucius lima. Objective Vital Signs Date Time Temp Pulse Resp B/P Pulse Ox O2 Delivery O2 Flow Rate FiO2 02/26/17 04:23 95.3 69 20 119/60 99 02/26/17 00:00 95.5 77 20 120/79 100 02/25/17 20:00 95.3 77 20 126/74 99 02/25/17 18:45 99 21 02/25/17 15:55 96.5 75 18 108/60 100 02/25/17 12:00 96.0 76 20 115/59 100 02/25/17 10:58 99 21 I/O 02/25/17 02/25/17 02/25/17 02/26/17 02/26/17 02/26/17 07:00 15:00 23:00 07:00 15:00 23:00 # Voids 1 2 1 2 # Bowel Movements 1 Result Diagram: 02/24/17 0940 02/24/17 1045 Imaging Last Impressions Head Magnetic Resonance Angiography 02/24/17 0000 Signed Impressions: Service Date/Time: Friday, February 24, 2017 16:24 - CONCLUSION: Chronic atherosclerotic changes of multiple small vessel branches bilaterally. Rl Amaro MD Head CT 02/24/17 0000 Signed Impressions: Service Date/Time: Friday, February 24, 2017 09:13 - CONCLUSION: 1. Slight atrophic and small vessel ischemic changes without any evidence for acute hemorrhage or mass effect. 2. Dislocated left optical lens. Rl Amaro MD Carotid Artery Ultrasound 02/24/17 0000 Signed Impressions: Service Date/Time: Friday, February 24, 2017 22:52 - CONCLUSION: Normal examination. Pankaj Fong MD Procedures No procedures performed. Other Results Laboratory Tests Test 02/24/17 02/24/17 02/24/17 02/24/17 09:39 09:40 10:45 13:54 Urine Color YELLOW Urine Turbidity CLEAR Urine pH 6.5 Urine Specific [place] 1.008 Urine Protein NEG mg/dL Urine Glucose (UA) NEG mg/dL Urine Ketones TRACE mg/dL Urine Occult Blood SMALL Urine Nitrite NEG Urine Bilirubin NEG Urine Urobilinogen LESS THAN 2.0 MG/DL Urine Leukocyte Esterase NEG Urine RBC 1 /hpf Urine WBC 1 /hpf Microscopic Urinalysis Comment CULT NOT INDICATED White Blood Count 7.2 TH/MM3 Red Blood Count 4.00 MIL/MM3 Hemoglobin 14.6 GM/DL Hematocrit 41.4 % Mean Corpuscular Volume 103.4 FL Mean Corpuscular Hemoglobin 36.5 PG Mean Corpuscular Hemoglobin 35.3 % Concent Red Cell Distribution Width 13.3 % Platelet Count 243 TH/MM3 Mean Platelet Volume 7.7 FL Neutrophils (%) (Auto) 86.4 % Lymphocytes (%) (Auto) 6.2 % Monocytes (%) (Auto) 6.9 % Eosinophils (%) (Auto) 0.0 % Basophils (%) (Auto) 0.5 % Neutrophils # (Auto) 6.2 TH/MM3 Lymphocytes # (Auto) 0.4 TH/MM3 Monocytes # (Auto) 0.5 TH/MM3 Eosinophils # (Auto) 0.0 TH/MM3 Basophils # (Auto) 0.0 TH/MM3 CBC Comment DIFF FINAL Differential Comment Hemoglobin A1c 4.6 % Sodium Level 138 MEQ/L Potassium Level 4.3 MEQ/L Chloride Level 101 MEQ/L Carbon Dioxide Level 27.8 MEQ/L Anion Gap 9 MEQ/L Blood Urea Nitrogen 7 MG/DL Creatinine 0.90 MG/DL Estimat Glomerular Filtration 83 ML/MIN Rate Random Glucose 122 MG/DL Calcium Level 8.0 MG/DL Total Bilirubin 1.9 MG/DL Aspartate Amino Transf 90 U/L (AST/SGOT) Alanine Aminotransferase 39 U/L (ALT/SGPT) Alkaline Phosphatase 77 U/L Total Protein 6.0 GM/DL Albumin 3.1 GM/DL Ethyl Alcohol Level LESS THAN 3 MG/DL Vitamin B12 Level 643 PG/ML Folate 6.2 NG/ML Free Thyroxine 0.84 NG/DL Thyroid Stimulating Hormone 0.543 uIU/ML 3rd Gen Test 02/25/17 07:16 Total Creatine Kinase 767 U/L Creatine Kinase MB 17.8 NG/ML Creatine Kinase MB % 2.3 % Troponin I LESS THAN 0.02 NG/ML Triglycerides Level 61 MG/DL Cholesterol Level 127 MG/DL LDL Cholesterol 24 MG/DL HDL Cholesterol 91.3 MG/DL Cholesterol/HDL Ratio 1.39 RATIO Phenytoin (Dilantin) Level 13.8 MCG/ML Objective Remarks GENERAL: No Acute distress. SKIN: Focused skin assessment warm and dry. HEAD: Atraumatic. Normocephalic. EYES: Pupils equal and round. No injection or drainage. ENT: Moist mucous membranes NECK: Trachea midline. CARDIOVASCULAR: Tachycardic. No murmur appreciated. RESPIRATORY: Clear to auscultation. Breath sounds equal bilaterally. GASTROINTESTINAL: Abdomen soft, non-tender, nondistended. MUSCULOSKELETAL: No obvious deformities. NEUROLOGICAL: Alert and oriented x 3. No focal deficits. PSYCHIATRIC: Good mood Medications and IVs Current Medications Medications (Trade) Dose Ordered Sig/Emily Route Start Time Stop Time Status Last Admin (Aspirin) 325 mg DAILY PO 02/25/17 09:00 02/25/17 08:38 (NS Flush) 2 ml BID IV FLUSH 02/24/17 21:00 02/25/17 22:05 Sodium Chloride 2 ml 2 ml UNSCH PRN IV FLUSH 02/24/17 12:15 (NS 1000 ml Inj) 1,000 ml @ 70 mls/hr [id number] IV 02/24/17 12:07 02/24/17 14:14 (Pravachol) 40 mg HS PO 02/24/17 21:00 02/25/17 22:05 (D50w (Vial) Inj) 25 ml UNSCH PRN IV PUSH 02/24/17 12:15 (Glucagon Inj) 1 mg UNSCH PRN IM/SQ 02/24/17 12:15 (Lovenox Inj) 40 mg Q24H SQ 02/24/17 13:00 02/25/17 14:48 Lorazepam 1 mg 1 mg Q4H PRN IV PUSH 02/24/17 18:00 Multivitamins 10 ml/Folic Acid 1 mg/Sodium Chloride 510.2 ml @ 125 mls/hr Q24H IV 02/24/17 20:00 03/01/17 19:59 02/25/17 22:04 (Thiamine Inj/NS Inj) 101 ml @ 100 mls/hr Q24H IV 02/24/17 20:00 02/27/17 19:59 02/25/17 22:04 (Romazicon Inj) 0.2 mg Q1M PRN IV PUSH 02/24/17 18:15 (Ativan) 1 mg Q4H PRN PO 02/24/17 18:15 (Ativan Inj) 1 mg Q4H PRN IV PUSH 02/24/17 18:15 02/26/17 03:33 (Ativan) 2 mg Q2H PRN PO 02/24/17 18:15 (Ativan Inj) 2 mg Q2H PRN IV PUSH 02/24/17 18:15 02/25/17 00:08 (Ativan Inj) 2 mg Q1H PRN IV PUSH 02/24/17 18:15 (Ativan Inj) 2 mg Q15M PRN IV PUSH 02/24/17 18:15 (Librium) 25 mg TID PRN PO 02/25/17 16:45 (Dilantin) 100 mg Q8HR PO 02/25/17 22:00 02/26/17 06:33 A/P Assessment and Plan 1. Ruled out Ischemic Stroke 2. Post ictal states/Seizure Disorder, status post Fosphenytoin 1 gram loading dose and continue Dilantin 100 mg TID Seizure precautions and fall precautions, Telemetry, PT, OT and Speech Therapy, CT brain did not revealed pathology, Neurology specialist following, switch Cerebyx to by mouth Dilantin. 3. Severe medical non compliance. 4. ETOH abuse, continue Thiamine, Multivitamins, Folic Acid, CIWA protocol. strongly recommended to stop drinking behavior his son states he won't stop drinking alcohol. 5. Rhabdomyolysis continue IV fluids may need to increase IV fluids to 100 ml per hour. DVT prophylaxisLovenox. Code Status Full Code Discussed Condition With patient and nurse Mr. Kan Discharge Planning Expected in one to two days. Willie Ocasio MD Feb 26, 2017 08:42
[2017-02-26] MEDS: ASPIRIN 325 MG TAB PO SCH (08:49)
[2017-02-26] MEDS: SODIUM CHLORIDE 0.9% FLUSH 10 ML FLUSH IV FLUSH SCH ×2 (09:00→21:00)
--- NOTE | 2017-02-26 12:07 | HHI.HCPN ---
Reason for visit a. To assist with evaluation and management of symptoms including: Confusion , malnutrition b. To assist medical decision maker(s) with: better understanding of current medical conditions; weighing benefits/burdens of medical treatment options; making medical treatment decisions. Subjective/Interval History Pt seen to follow up on confusion, goals, possible decision maker. planned for meeting with son at bedside today. Pt stable overnight. No new labs or imaging today. Good PO intake. ST in to reevaluate at time of my visit. Nsg reports pt for the most part cooperative, mostly oriented. Needs IV replaced to cont IVF, pt does not want another IV, wants to go home. Initially seen in room no visitors present, son arrived shortly after. Pt seen eating puree lunch, eating soft, no signs or symptoms of problems during eating. ROS negative. Denies any pain, shortness of breath, GI complaints. Endorses good appetite feeling well overall. He indicates that he is feeling better and he thinks it's time for him to go home. He says he likes coming to this hospital because whenever he gets sick they help him feel better in a couple days he goes home. He appears to have some limited insight endorses that he came here because he was sick and he came here in the past because he was sick from his brain and each time the hospital helped some get better. He says he really wants to go home because he needs to drink and they will not let him drink here. Explore with him that if he continues to drink he may continue to have sickness from that. He laughs and smiles and says that the hospital is good at helping him a better and that he will continue to drink, and will decide limits his time to go. Explore with him his family support--he endorses that he has 2 sons, 2 daughters, he lives with his son Kadeem, his daughter Shaniqua. He endorses that they take good care of him, and he appreciates his son. He tells me his son is a pilot plant operator and sometimes travels a lot. He seems to be at or near his baseline mental status based on review of records and current assessment. His son does arrive spoke with Kadeem at the bedside Kadeem does endorse that he is a pilot plant operator and travels at times. He and his sister look after the patient. He asks about patient's continued alcohol use and what will happen from ear gently explore that as long as patient continues to consume large amount of alcohol will be at risk for ongoing complications--he asks what the detox options are, explore that there really are limited options are certainly patient would need an acute inpatient detox setting as he would be high risk for neurologic, respiratory, cardiovascular compromise secondary to withdrawal symptoms. Other component is patient has to want to not consume alcohol. Patient is in a very difficult situation given detoxification would have some risks and help medications, the other part is patient doesn't actually want to quit drinking. Gently explore his son that if patient continues to drink and experience decline in injury secondary to at some point he can let hospice to ensure that the patient is comfortable end-of-life. Son currently expresses aggressive goals and indicates that the patient is not ready for hospice and that at this point if alcohol helps him live then he'll allow him to continue to drink, though he does not like the side effects and complication and brings. Patient appears reasonably clear and appropriate, he completed health care surrogate designation naming mireya Quan, saleem Mcgovern is secondary. primary RN witnessed this. Advance Directives Living Will: Never completed Health Care Surrogate: Copy in medical record Advance Directive Specifics Date completed: --> [facility] 02/26/17 naming mireya Perez Health Care Surrogate(s): [facility] 02/26/17 pt completes new healthcare surrogate naming mireya Perez, secondary saleem Mcgovern Document from 08/2014 names mireya Perez, secondary Ludivina Perez Significant change in goals: --> [facility] 02/26/17 naming mireya Perez Objective Vital Signs Date Time Temp Pulse Resp B/P Pulse Ox O2 Delivery O2 Flow Rate FiO2 02/26/17 08:00 96.3 77 20 115/74 99 02/26/17 04:23 95.3 69 20 119/60 99 02/26/17 00:00 95.5 77 20 120/79 100 02/25/17 20:00 63 02/25/17 20:00 95.3 77 20 126/74 99 02/25/17 18:45 99 21 02/25/17 15:55 96.5 75 18 108/60 100 Intake & Output 02/26/17 02/26/17 07:00 19:00 # Voids 3 Physical Exam CONSTITUTIONAL/GENERAL: This is a thin, frail-appearing patient. Pleasant, cooperative TUBES/LINES/DRAINS: Peripheral IV LT upper extremity. CARDIOVASCULAR: Regular rate and rhythm, no murmurs. Peripheral pulses symmetric. No peripheral edema. RESPIRATORY/CHEST: Symmetric, unlabored respirations. On room air. Clear to auscultation. Breath sounds equal bilaterally. GASTROINTESTINAL: Abdomen soft, non-tender, nondistended. No hepato-splenomegaly , or palpable masses. No guarding. Bowel sounds present. MUSCULOSKELETAL: Extremities without clubbing, cyanosis, or edema. No joint tenderness or effusion noted. No calf tenderness. No mottling or clubbing. extremities very thin, some muscle atrophy NEUROLOGICAL: Awake and alert. Mostly oriented to person, place, family, city - - some limited insight to hospitalization. Moves all 4 extremities, follows commands. Cooperative. PSYCHIATRIC: No obvious anxiety/depression. no apparent hallucinations or other psychotic thought process. Diagnostic Tests Laboratory Laboratory Tests Test 02/24/17 02/24/17 02/24/17 02/24/17 09:39 09:40 10:45 13:54 Urine Color YELLOW (YELLW/STRAW) Urine Turbidity CLEAR (CLEAR) Urine pH 6.5 (5.0-8.5) Urine Specific [place] 1.008 (1.002-1.035) Urine Protein NEG mg/dL (NEG-TRACE) Urine Glucose (UA) NEG mg/dL (NEG) Urine Ketones TRACE mg/dL (NEG) Urine Occult Blood SMALL (NEG) Urine Nitrite NEG (NEG) Urine Bilirubin NEG (NEG) Urine Urobilinogen LESS THAN 2.0 MG/DL (LESS THAN 2.0) Urine Leukocyte Esterase NEG (NEG) Urine RBC 1 /hpf (0-3) Urine WBC 1 /hpf (0-5) Microscopic Urinalysis Comment CULT NOT INDICATED White Blood Count 7.2 TH/MM3 (4.0-11.0) Red Blood Count 4.00 MIL/MM3 (4.50-5.90) Hemoglobin 14.6 GM/DL (13.0-17.0) Hematocrit 41.4 % (39.0-51.0) Mean Corpuscular Volume 103.4 FL (80.0-100.0) Mean Corpuscular Hemoglobin 36.5 PG (27.0-34.0) Mean Corpuscular Hemoglobin 35.3 % Concent (32.0-36.0) Red Cell Distribution Width 13.3 % (11.6-17.2) Platelet Count 243 TH/MM3 (150-450) Mean Platelet Volume 7.7 FL (7.0-11.0) Neutrophils (%) (Auto) 86.4 % (16.0-70.0) Lymphocytes (%) (Auto) 6.2 % (9.0-44.0) Monocytes (%) (Auto) 6.9 % (0.0-8.0) Eosinophils (%) (Auto) 0.0 % (0.0-4.0) Basophils (%) (Auto) 0.5 % (0.0-2.0) Neutrophils # (Auto) 6.2 TH/MM3 (1.8-7.7) Lymphocytes # (Auto) 0.4 TH/MM3 (1.0-4.8) Monocytes # (Auto) 0.5 TH/MM3 (0-0.9) Eosinophils # (Auto) 0.0 TH/MM3 (0-0.4) Basophils # (Auto) 0.0 TH/MM3 (0-0.2) CBC Comment DIFF FINAL Differential Comment Hemoglobin A1c 4.6 % (4.3-6.0) Sodium Level 138 MEQ/L (136-145) Potassium Level 4.3 MEQ/L (3.5-5.1) Chloride Level 101 MEQ/L (98-107) Carbon Dioxide Level 27.8 MEQ/L (21.0-32.0) Anion Gap 9 MEQ/L (5-15) Blood Urea Nitrogen 7 MG/DL (7-18) Creatinine 0.90 MG/DL (0.60-1.30) Estimat Glomerular Filtration 83 ML/MIN (>89) Rate Random Glucose 122 MG/DL (74-106) Calcium Level 8.0 MG/DL (8.5-10.1) Total Bilirubin 1.9 MG/DL (0.2-1.0) Aspartate Amino Transf 90 U/L (15-37) (AST/SGOT) Alanine Aminotransferase 39 U/L (12-78) (ALT/SGPT) Alkaline Phosphatase 77 U/L (45-117) Total Protein 6.0 GM/DL (6.4-8.2) Albumin 3.1 GM/DL (3.4-5.0) Phenytoin (Dilantin) Level LESS THAN 0.4 MCG/ML (10.0-20.0) Ethyl Alcohol Level LESS THAN 3 MG/DL (0-5) Total Creatine Kinase 150 U/L (39-308) Troponin I LESS THAN 0.02 NG/ML (0.02-0.05) Triglycerides Level 44 MG/DL (42-150) Cholesterol Level 157 MG/DL (120-200) LDL Cholesterol 40 MG/DL (0-99) HDL Cholesterol 108.0 MG/DL (40.0-60.0) Cholesterol/HDL Ratio 1.45 RATIO Vitamin B12 Level 643 PG/ML (193-986) Folate 6.2 NG/ML (3.1-17.5) Free Thyroxine 0.84 NG/DL (0.76-1.46) Thyroid Stimulating Hormone 0.543 uIU/ML 3rd Gen (0.358-3.740) Test 02/24/17 02/25/17 22:49 07:16 Total Creatine Kinase 778 U/L 767 U/L (39-308) (39-308) Creatine Kinase MB 19.4 NG/ML 17.8 NG/ML (0.5-3.6) (0.5-3.6) Creatine Kinase MB % 2.5 % (0.0-4.0) 2.3 % (0.0-4.0) Troponin I LESS THAN 0.02 LESS THAN 0.02 NG/ML NG/ML (0.02-0.05) (0.02-0.05) Triglycerides Level 61 MG/DL (42-150) Cholesterol Level 127 MG/DL (120-200) LDL Cholesterol 24 MG/DL (0-99) HDL Cholesterol 91.3 MG/DL (40.0-60.0) Cholesterol/HDL Ratio 1.39 RATIO Phenytoin (Dilantin) Level 13.8 MCG/ML (10.0-20.0) Result Diagram: 02/24/17 0940 02/24/17 1045 Imaging Last Impressions Head Magnetic Resonance Angiography 02/24/17 0000 Signed Impressions: Service Date/Time: Friday, February 24, 2017 16:24 - CONCLUSION: Chronic atherosclerotic changes of multiple small vessel branches bilaterally. KLyndsey Amaro MD Head CT 02/24/17 0000 Signed Impressions: Service Date/Time: Friday, February 24, 2017 09:13 - CONCLUSION: 1. Slight atrophic and small vessel ischemic changes without any evidence for acute hemorrhage or mass effect. 2. Dislocated left optical lens. Rl Amaro MD Carotid Artery Ultrasound 02/24/17 0000 Signed Impressions: Service Date/Time: Friday, February 24, 2017 22:52 - CONCLUSION: Normal examination. Pankaj Fong MD Assessment and Plan Disease Oriented Problem List: (1) Traumatic brain injury (2) Seizure disorder (3) ETOH abuse (4) Seizure (5) ETOHism (6) Altered mental status Symptom Scale: (1) Seizure (2) Confusion (3) Malnutrition Pertinent Non-Medical Issues Psychosocial: Spiritual: Legal:Patient is currently not capacitated were able to make his own decisions. Per review of EMR I note health care surrogate designation completed 08/2014 which names primary as a al Perez, secondary Ludivina Perez, both names at the same address and telephone number. [[address] [place] [address],[phone]] Ethical issues impacting care: Important Contacts mireya PEREZ [phone]--designated as healthcare surrogate in 2013 mireya EID [phone] Omar CROWLEY [phone] Shaniqua Perez DTR [phone] / [phone] . Prognosis This patient was admitted for AMS, possible post ictal state, though baseline status is not clear at this time due to patient, family poor historian. All diagnostics pending. Appears patient may have chronic seizure, alcohol related issues based on review of EMR. Based on available information his prognosis appears guarded; given his history, advanced age, if he continues to have alcohol, not adhere to recommended seizure regimen will continue to have medical issues, possible injuries, and recurrent hospitalizations. . Code Status: Full Code Plan * Legal decision maker:Patient is currently not capacitated or able to make his own decisions. Per review of EMR I note health care surrogate designation completed 08/2014 which names primary as a mireya Perez, secondary Ludivina Perez, both names at the same address and telephone number.I was not able to reach them at this number at time of consultation. Patient completed [facility] designation 02/26/17naming mireya Perez whom he lives with, secondary daughter Shaniqua Perez * Goals: Aggressive. Son Kadeem understands patient remains at risk for further decline and complications related to alcohol abuse however the alternative would be detoxification and alcohol cessation which he does not feel the patient will be able to be consistent with. * CODE STATUS: Full code * SYMPTOMS: --Confusion--? Post ictal on admission,? Alcohol withdrawal. Appears to be improving, close to baseline as per son. Avoid sedating medications if possible continue to monitor. Has prn range ativan for etoh withdrawal. --Malnutrition-patient very frail, cachectic in appearance. Son Endorses some weight loss though not known how much. Albumin 3.1. Current admission weight charted at 53.5 kg, prior admission 2013 documents weight at 57 kg; however admission 2013 for traumatic brain injury notes weight at about 50 kg-- appears his baseline is of thin stature. He currently endorses good appetite and no GI complaints. --Seizure? Postictal on admission. History of TBI, documented in EMR history of seizures following (though son reports patient with no seizures) currently on Cerebyx as per neuro, Dilantin discontinued * Palliative care will continue to follow during hospital course as condition evolves, to assist patient/decision-maker with understanding of medical conditions, weighing benefits/burdens of treatment options, for clarification of goals of treatment. Additionally will assist with any symptoms of palliative concern Attestation To help prompt me to consider important information that might be impacting today's encounter and assessment, information from prior notes written by myself or my colleagues may have been "brought forward" into today's note. My signature on this note, however, is an attestation that I personally performed the exam, history, and/or decision-making noted today, and, unless otherwise indicated, the interactions with patient, family, and staff as well as the review of records all occurred today. I also attest that the listed assessment and stated plan reflect my best clinical judgment today based on the combination of historical information, prior notes, and today's exam/ interactions. When time spent is documented, it refers only to time spent today by the signer, or if indicated, combined time spent today by collaborating physician/nurse practitioner. Rosette Samayoa Feb 26, 2017 12:07
[2017-02-26] MEDS: LACTULOSE SYRUP 20 GM/30 ML CUP PO SCH ×2 (15:07→18:00)
[2017-02-26] MEDS: LORazepam 2 MG/ML VIAL IV PUSH PRN (15:13)
[2017-02-26] MEDS: ENOXAPARIN SODIUM 40 MG/0.4 ML SYRINGE SQ SCH (15:38)
[2017-02-26] MEDS: MULTIVITAMIN INJ 10 ML, FOLIC ACID INJ 1 MG in SODIUM CHLORID 0.9% 500 ML INJ 500 ML IV SCH (21:34)
[2017-02-26] MEDS: THIAMINE INJ 100 MG in SODIUM CHLORIDE 0.9% INJ 100 ML IV SCH (21:34)
[2017-02-26] MEDS: PRAVASTATIN SOD 40 MG TAB PO SCH (21:34)
[2017-02-27] VITALS: BP 119/52; PULSE 61; RESP 20; TEMP 97.5; O2SAT 97
[2017-02-27] MEDS: SODIUM CHLOR 0.9% 1000 ML INJ 1,000 ML IV SCH ×2 (01:39→21:39)
[2017-02-27 04:00] VITALS: BP 114/71; PULSE 72; RESP 20; TEMP 97.3; O2SAT 97
[2017-02-27] MEDS: INSULIN ASPART SUPPLEMENTAL SCALE SQ SCH ×4 (06:06→21:00)
[2017-02-27] MEDS: PHENYTOIN SODIUM 100 MG CAP PO SCH ×3 (06:07→23:08)
[2017-02-27 08:01] VITALS: BP 112/69; PULSE 76; RESP 18; TEMP 97.2; O2SAT 97
--- NOTE | 2017-02-27 08:23 | HHI.PR ---
Subjective Remarks This is a pleasant 71 year old male who has a history of dementia and alcoholism who presents to the emergency department having been found by his family on a couch incontinent of urine, sleepy, appearing to have had a seizure. Patient has a history of seizures in the past. He is supposed to be on Dilantin. He drinks alcohol every day. EMS reports that both the patient and his son were poor historians. Seen in Emergency room not able to take much history from the patient, he has history of seizure, Non compliance and ETOHism. 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 he had one Gram of Fosphenytoin, will continue Dilantin. Neurology specialist consult. he has Aphasia asked for Neurology specialist consult 02/25: Seen in the present of his Son Mr. Kadeem Perez, patient improving condition, continue CIWA protocol added Librium and following Neurology specialist following. 02/26: Patient stable no complaint, alert and oriented x 3. added Lactulose to avoid Ammonia level accumulation 02/27: In his room in the presence of [employer] that is feeding him, he is oriented x 3 , is able to tell me where he is, the state, but not the date eating well, continue present care by now and follow Objective Vital Signs Date Time Temp Pulse Resp B/P Pulse Ox O2 Delivery O2 Flow Rate FiO2 02/27/17 08:01 97.2 76 18 112/69 97 02/27/17 04:00 97.3 72 20 114/71 97 02/27/17 00:00 97.5 61 20 119/52 97 02/26/17 20:00 97.2 96 18 122/69 96 02/26/17 16:00 96.9 85 20 137/74 98 02/26/17 12:35 99 21 02/26/17 12:00 96.8 77 20 115/59 100 I/O 02/26/17 02/26/17 02/26/17 02/27/17 02/27/17 02/27/17 07:00 15:00 23:00 07:00 15:00 23:00 Output Total 350 ml Balance -350 ml Output Urine Total 350 ml # Voids 2 3 1 # Bowel Movements 1 0 0 Result Diagram: 02/24/17 0940 02/24/17 1045 Imaging Last Impressions Head Magnetic Resonance Angiography 02/24/17 0000 Signed Impressions: Service Date/Time: Friday, February 24, 2017 16:24 - CONCLUSION: Chronic atherosclerotic changes of multiple small vessel branches bilaterally. Rl Amaro MD Head CT 02/24/17 0000 Signed Impressions: Service Date/Time: Friday, February 24, 2017 09:13 - CONCLUSION: 1. Slight atrophic and small vessel ischemic changes without any evidence for acute hemorrhage or mass effect. 2. Dislocated left optical lens. Rl Amaro MD Carotid Artery Ultrasound 02/24/17 0000 Signed Impressions: Service Date/Time: Friday, February 24, 2017 22:52 - CONCLUSION: Normal examination. Pankaj Fong MD Procedures No procedures performed. Other Results Laboratory Tests Test 02/24/17 02/24/17 02/24/17 02/24/17 09:39 09:40 10:45 13:54 Urine Color YELLOW Urine Turbidity CLEAR Urine pH 6.5 Urine Specific [place] 1.008 Urine Protein NEG mg/dL Urine Glucose (UA) NEG mg/dL Urine Ketones TRACE mg/dL Urine Occult Blood SMALL Urine Nitrite NEG Urine Bilirubin NEG Urine Urobilinogen LESS THAN 2.0 MG/DL Urine Leukocyte Esterase NEG Urine RBC 1 /hpf Urine WBC 1 /hpf Microscopic Urinalysis Comment CULT NOT INDICATED White Blood Count 7.2 TH/MM3 Red Blood Count 4.00 MIL/MM3 Hemoglobin 14.6 GM/DL Hematocrit 41.4 % Mean Corpuscular Volume 103.4 FL Mean Corpuscular Hemoglobin 36.5 PG Mean Corpuscular Hemoglobin 35.3 % Concent Red Cell Distribution Width 13.3 % Platelet Count 243 TH/MM3 Mean Platelet Volume 7.7 FL Neutrophils (%) (Auto) 86.4 % Lymphocytes (%) (Auto) 6.2 % Monocytes (%) (Auto) 6.9 % Eosinophils (%) (Auto) 0.0 % Basophils (%) (Auto) 0.5 % Neutrophils # (Auto) 6.2 TH/MM3 Lymphocytes # (Auto) 0.4 TH/MM3 Monocytes # (Auto) 0.5 TH/MM3 Eosinophils # (Auto) 0.0 TH/MM3 Basophils # (Auto) 0.0 TH/MM3 CBC Comment DIFF FINAL Differential Comment Hemoglobin A1c 4.6 % Total Bilirubin 1.9 MG/DL Aspartate Amino Transf 90 U/L (AST/SGOT) Alanine Aminotransferase 39 U/L (ALT/SGPT) Alkaline Phosphatase 77 U/L Total Protein 6.0 GM/DL Albumin 3.1 GM/DL Ethyl Alcohol Level LESS THAN 3 MG/DL Vitamin B12 Level 643 PG/ML Folate 6.2 NG/ML Free Thyroxine 0.84 NG/DL Thyroid Stimulating Hormone 0.543 uIU/ML 3rd Gen Test 02/25/17 02/27/17 07:16 08:20 Troponin I LESS THAN 0.02 NG/ML Triglycerides Level 61 MG/DL Cholesterol Level 127 MG/DL LDL Cholesterol 24 MG/DL HDL Cholesterol 91.3 MG/DL Cholesterol/HDL Ratio 1.39 RATIO Phenytoin (Dilantin) Level 13.8 MCG/ML Sodium Level 145 MEQ/L Potassium Level 3.5 MEQ/L Chloride Level 106 MEQ/L Carbon Dioxide Level 30.0 MEQ/L Anion Gap 9 MEQ/L Blood Urea Nitrogen 4 MG/DL Creatinine 0.72 MG/DL Estimat Glomerular Filtration 107 ML/MIN Rate Random Glucose 86 MG/DL Calcium Level 8.6 MG/DL Magnesium Level 1.7 MG/DL Total Creatine Kinase 393 U/L Creatine Kinase MB 4.7 NG/ML Creatine Kinase MB % 1.2 % Objective Remarks GENERAL: No Acute distress. SKIN: Focused skin assessment warm and dry. HEAD: Atraumatic. Normocephalic. EYES: Pupils equal and round. No injection or drainage. ENT: Moist mucous membranes NECK: Trachea midline. CARDIOVASCULAR: Tachycardic. No murmur appreciated. RESPIRATORY: Clear to auscultation. Breath sounds equal bilaterally. GASTROINTESTINAL: Abdomen soft, non-tender, nondistended. MUSCULOSKELETAL: No obvious deformities. NEUROLOGICAL: Alert and oriented x 3. No focal deficits. PSYCHIATRIC: Good mood Medications and IVs Current Medications Medications (Trade) Dose Ordered Sig/Emily Route Start Time Stop Time Status Last Admin (Aspirin) 325 mg DAILY PO 02/25/17 09:00 02/26/17 08:49 (NS Flush) 2 ml BID IV FLUSH 02/24/17 21:00 02/25/17 22:05 Sodium Chloride 2 ml 2 ml UNSCH PRN IV FLUSH 02/24/17 12:15 (NS 1000 ml Inj) 1,000 ml @ 100 mls/hr Q10H IV 02/24/17 12:07 02/24/17 14:14 (Pravachol) 40 mg HS PO 02/24/17 21:00 02/26/17 21:34 (D50w (Vial) Inj) 25 ml UNSCH PRN IV PUSH 02/24/17 12:15 (Glucagon Inj) 1 mg UNSCH PRN IM/SQ 02/24/17 12:15 (Lovenox Inj) 40 mg Q24H SQ 02/24/17 13:00 02/26/17 15:38 Lorazepam 1 mg 1 mg Q4H PRN IV PUSH 02/24/17 18:00 Multivitamins 10 ml/Folic Acid 1 mg/Sodium Chloride 510.2 ml @ 125 mls/hr Q24H IV 02/24/17 20:00 03/01/17 19:59 02/26/17 21:34 (Thiamine Inj/NS Inj) 101 ml @ 100 mls/hr Q24H IV 02/24/17 20:00 02/27/17 19:59 02/26/17 21:34 (Romazicon Inj) 0.2 mg Q1M PRN IV PUSH 02/24/17 18:15 (Ativan) 1 mg Q4H PRN PO 02/24/17 18:15 (Ativan Inj) 1 mg Q4H PRN IV PUSH 02/24/17 18:15 02/26/17 03:33 (Ativan) 2 mg Q2H PRN PO 02/24/17 18:15 (Ativan Inj) 2 mg Q2H PRN IV PUSH 02/24/17 18:15 02/26/17 15:13 (Ativan Inj) 2 mg Q1H PRN IV PUSH 02/24/17 18:15 (Ativan Inj) 2 mg Q15M PRN IV PUSH 02/24/17 18:15 (Librium) 25 mg TID PRN PO 02/25/17 16:45 02/26/17 12:35 (Dilantin) 100 mg Q8HR PO 02/25/17 22:00 02/27/17 06:07 (Lactulose Liq) 30 ml TID PO 02/26/17 13:00 02/26/17 15:07 A/P Assessment and Plan 1. Ruled out Ischemic Stroke 2. Post ictal states/Seizure Disorder, status post Fosphenytoin 1 gram loading dose and continue Dilantin 100 mg TID Seizure precautions and fall precautions, Telemetry, PT, OT and Speech Therapy, CT brain did not revealed pathology, Neurology specialist following, switch Cerebyx to by mouth Dilantin. 3. Severe medical non compliance. 4. ETOH abuse, continue Thiamine, Multivitamins, Folic Acid, CIWA protocol. strongly recommended to stop drinking behavior his son states he won't stop drinking alcohol. continue CIWA protocol. 5. Rhabdomyolysis continue IV fluids may need to increase IV fluids to 100 ml per hour. CK level 393 trending down fast. 6. electrolyte derangement replaced DVT prophylaxisLovenox. Code Status Full Code Discussed Condition With patient and Nurse Discharge Planning Expected in one to two days. Willie Ocasio MD Feb 27, 2017 08:23
[2017-02-27] MEDS: SODIUM CHLORIDE 0.9% FLUSH 10 ML FLUSH IV FLUSH SCH ×2 (09:00→21:00)
[2017-02-27 09:21] LABS: MAGNESIUM 1.7 MG/DL (1.5-2.5)
[2017-02-27 09:23] LABS: POTASSIUM 3.5 MEQ/L (3.5-5.1)
[2017-02-27] MEDS: ASPIRIN 325 MG TAB PO SCH (09:56)
[2017-02-27] MEDS: LACTULOSE SYRUP 20 GM/30 ML CUP PO SCH ×3 (09:56→17:20)
[2017-02-27 11:36] LABS: CKMB 4.7 NG/ML (0.5-3.6)
[2017-02-27 11:58] VITALS: BP 108/65; PULSE 64; RESP 18; TEMP 97.1; O2SAT 99
[2017-02-27] MEDS: ENOXAPARIN SODIUM 40 MG/0.4 ML SYRINGE SQ SCH (13:43)
[2017-02-27 15:41] VITALS: BP 140/72; PULSE 76; RESP 18; TEMP 96; O2SAT 98
[2017-02-27] MEDS: MAGNESIUM SULFATE 1 GM PREMIX 100 ML IV SCH ×2 (17:21→18:00)
[2017-02-27] MEDS: POTASSIUM CHLOR 10 MEQ PREMIX 100 ML IV SCH ×3 (18:23→22:32)
[2017-02-27 20:00] VITALS: BP 129/70; PULSE 78; RESP 18; TEMP 98.1; O2SAT 91
[2017-02-27] MEDS: MULTIVITAMIN INJ 10 ML, FOLIC ACID INJ 1 MG in SODIUM CHLORID 0.9% 500 ML INJ 500 ML IV SCH (23:07)
[2017-02-27] MEDS: PRAVASTATIN SOD 40 MG TAB PO SCH (23:08)
[2017-02-28] VITALS: BP 129/77; PULSE 125; RESP 21; TEMP 95.9; O2SAT 97
[2017-02-28] MEDS: MAGNESIUM SULFATE 1 GM PREMIX 100 ML IV SCH (00:23)
[2017-02-28] MEDS ORDERED: MAGNESIUM SULFATE 1 GM PREMIX 100 ML IV ONE (03:00)
[2017-02-28 04:00] VITALS: BP 133/74; PULSE 74; RESP 20; TEMP 97.3; O2SAT 100
[2017-02-28] MEDS: PHENYTOIN SODIUM 100 MG CAP PO SCH ×3 (04:21→22:18)
[2017-02-28] MEDS: INSULIN ASPART SUPPLEMENTAL SCALE SQ SCH ×4 (04:34→21:00)
[2017-02-28] MEDS: SODIUM CHLOR 0.9% 1000 ML INJ 1,000 ML IV SCH ×2 (07:39→17:39)
[2017-02-28 08:17] VITALS: BP 134/77; PULSE 79; RESP 16; TEMP 96; O2SAT 95
[2017-02-28] MEDS: ASPIRIN 325 MG TAB PO SCH (09:00)
[2017-02-28] MEDS: LACTULOSE SYRUP 20 GM/30 ML CUP PO SCH ×3 (09:00→16:35)
[2017-02-28] MEDS: SODIUM CHLORIDE 0.9% FLUSH 10 ML FLUSH IV FLUSH SCH ×2 (09:06→21:00)
--- NOTE | 2017-02-28 09:51 | HHI.PR ---
Subjective Remarks This is a pleasant 71 year old male who has a history of dementia and alcoholism who presents to the emergency department having been found by his family on a couch incontinent of urine, sleepy, appearing to have had a seizure. Patient has a history of seizures in the past. He is supposed to be on Dilantin. He drinks alcohol every day. EMS reports that both the patient and his son were poor historians. Seen in Emergency room not able to take much history from the patient, he has history of seizure, Non compliance and ETOHism. 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 he had one Gram of Fosphenytoin, will continue Dilantin. Neurology specialist consult. he has Aphasia asked for Neurology specialist consult 02/25: Seen in the present of his Son Mr. Kadeem Perez, patient improving condition, continue CIWA protocol added Librium and following Neurology specialist following. 02/26: Patient stable no complaint, alert and oriented x 3. added Lactulose to avoid Ammonia level accumulation 02/27: In his room in the presence of [employer] that is feeding him, he is oriented x 3 , is able to tell me where he is, the state, but not the date eating well, continue present care by now and follow 02/28: Seen in his bedroom, stable continue on CIWA protocol, alert and oriented. will follow OT and PT evaluations for probable discharge tomorrow. No Nausea, vomit or diarrhea. Objective Vital Signs Date Time Temp Pulse Resp B/P Pulse Ox O2 Delivery O2 Flow Rate FiO2 02/28/17 08:17 96.0 79 16 134/77 95 02/28/17 04:00 97.3 74 20 133/74 100 02/28/17 00:00 95.9 125 21 129/77 97 02/27/17 20:00 98.1 78 18 129/70 91 02/27/17 15:41 96.0 76 18 140/72 98 02/27/17 11:58 97.1 64 18 108/65 99 I/O 02/27/17 02/27/17 02/27/17 02/28/17 02/28/17 02/28/17 07:00 15:00 23:00 07:00 15:00 23:00 Intake Total 480 ml 220 ml Output Total 350 ml 250 ml Balance -350 ml 230 ml 220 ml Intake Oral 480 ml 220 ml Output Urine Total 350 ml 250 ml # Voids 2 3 # Bowel Movements 0 0 0 Result Diagram: 02/24/17 0940 02/27/17 0820 Imaging Last Impressions Head Magnetic Resonance Angiography 02/24/17 0000 Signed Impressions: Service Date/Time: Friday, February 24, 2017 16:24 - CONCLUSION: Chronic atherosclerotic changes of multiple small vessel branches bilaterally. Rl Amaro MD Head CT 02/24/17 0000 Signed Impressions: Service Date/Time: Friday, February 24, 2017 09:13 - CONCLUSION: 1. Slight atrophic and small vessel ischemic changes without any evidence for acute hemorrhage or mass effect. 2. Dislocated left optical lens. Rl Amaro MD Carotid Artery Ultrasound 02/24/17 0000 Signed Impressions: Service Date/Time: Friday, February 24, 2017 22:52 - CONCLUSION: Normal examination. Pankaj Fong MD Procedures No procedures performed. Other Results Laboratory Tests Test 02/24/17 02/24/17 02/24/17 02/24/17 09:39 09:40 10:45 13:54 Urine Color YELLOW Urine Turbidity CLEAR Urine pH 6.5 Urine Specific [place] 1.008 Urine Protein NEG mg/dL Urine Glucose (UA) NEG mg/dL Urine Ketones TRACE mg/dL Urine Occult Blood SMALL Urine Nitrite NEG Urine Bilirubin NEG Urine Urobilinogen LESS THAN 2.0 MG/DL Urine Leukocyte Esterase NEG Urine RBC 1 /hpf Urine WBC 1 /hpf Microscopic Urinalysis Comment CULT NOT INDICATED White Blood Count 7.2 TH/MM3 Red Blood Count 4.00 MIL/MM3 Hemoglobin 14.6 GM/DL Hematocrit 41.4 % Mean Corpuscular Volume 103.4 FL Mean Corpuscular Hemoglobin 36.5 PG Mean Corpuscular Hemoglobin 35.3 % Concent Red Cell Distribution Width 13.3 % Platelet Count 243 TH/MM3 Mean Platelet Volume 7.7 FL Neutrophils (%) (Auto) 86.4 % Lymphocytes (%) (Auto) 6.2 % Monocytes (%) (Auto) 6.9 % Eosinophils (%) (Auto) 0.0 % Basophils (%) (Auto) 0.5 % Neutrophils # (Auto) 6.2 TH/MM3 Lymphocytes # (Auto) 0.4 TH/MM3 Monocytes # (Auto) 0.5 TH/MM3 Eosinophils # (Auto) 0.0 TH/MM3 Basophils # (Auto) 0.0 TH/MM3 CBC Comment DIFF FINAL Differential Comment Hemoglobin A1c 4.6 % Total Bilirubin 1.9 MG/DL Aspartate Amino Transf 90 U/L (AST/SGOT) Alanine Aminotransferase 39 U/L (ALT/SGPT) Alkaline Phosphatase 77 U/L Total Protein 6.0 GM/DL Albumin 3.1 GM/DL Ethyl Alcohol Level LESS THAN 3 MG/DL Vitamin B12 Level 643 PG/ML Folate 6.2 NG/ML Free Thyroxine 0.84 NG/DL Thyroid Stimulating Hormone 0.543 uIU/ML 3rd Gen Test 02/25/17 02/27/17 07:16 08:20 Troponin I LESS THAN 0.02 NG/ML Triglycerides Level 61 MG/DL Cholesterol Level 127 MG/DL LDL Cholesterol 24 MG/DL HDL Cholesterol 91.3 MG/DL Cholesterol/HDL Ratio 1.39 RATIO Phenytoin (Dilantin) Level 13.8 MCG/ML Sodium Level 145 MEQ/L Potassium Level 3.5 MEQ/L Chloride Level 106 MEQ/L Carbon Dioxide Level 30.0 MEQ/L Anion Gap 9 MEQ/L Blood Urea Nitrogen 4 MG/DL Creatinine 0.72 MG/DL Estimat Glomerular Filtration 107 ML/MIN Rate Random Glucose 86 MG/DL Calcium Level 8.6 MG/DL Magnesium Level 1.7 MG/DL Total Creatine Kinase 393 U/L Creatine Kinase MB 4.7 NG/ML Creatine Kinase MB % 1.2 % Objective Remarks GENERAL: No Acute distress. SKIN: Focused skin assessment warm and dry. HEAD: Atraumatic. Normocephalic. EYES: Pupils equal and round. No injection or drainage. ENT: Moist mucous membranes NECK: Trachea midline. CARDIOVASCULAR: Tachycardic. No murmur appreciated. RESPIRATORY: Clear to auscultation. Breath sounds equal bilaterally. GASTROINTESTINAL: Abdomen soft, non-tender, nondistended. MUSCULOSKELETAL: No obvious deformities. NEUROLOGICAL: Alert and oriented x 3. No focal deficits. PSYCHIATRIC: Good mood Medications and IVs Current Medications Medications (Trade) Dose Ordered Sig/Emily Route Start Time Stop Time Status Last Admin (Aspirin) 325 mg DAILY PO 02/25/17 09:00 02/28/17 09:00 (NS Flush) 2 ml BID IV FLUSH 02/24/17 21:00 02/28/17 09:06 Sodium Chloride 2 ml 2 ml UNSCH PRN IV FLUSH 02/24/17 12:15 (NS 1000 ml Inj) 1,000 ml @ 100 mls/hr Q10H IV 02/24/17 12:07 02/24/17 14:14 (Pravachol) 40 mg HS PO 02/24/17 21:00 02/27/17 23:08 (D50w (Vial) Inj) 25 ml UNSCH PRN IV PUSH 02/24/17 12:15 (Glucagon Inj) 1 mg UNSCH PRN IM/SQ 02/24/17 12:15 (Lovenox Inj) 40 mg Q24H SQ 02/24/17 13:00 02/27/17 13:43 Lorazepam 1 mg 1 mg Q4H PRN IV PUSH 02/24/17 18:00 (Mvi-12 Inj/ Folvite Inj/NS 500 ml Inj) 510.2 ml @ 125 mls/hr Q24H IV 02/24/17 20:00 03/01/17 19:59 02/27/17 23:07 (Romazicon Inj) 0.2 mg Q1M PRN IV PUSH 02/24/17 18:15 (Ativan) 1 mg Q4H PRN PO 02/24/17 18:15 (Ativan Inj) 1 mg Q4H PRN IV PUSH 02/24/17 18:15 02/26/17 03:33 (Ativan) 2 mg Q2H PRN PO 02/24/17 18:15 (Ativan Inj) 2 mg Q2H PRN IV PUSH 02/24/17 18:15 02/26/17 15:13 (Ativan Inj) 2 mg Q1H PRN IV PUSH 02/24/17 18:15 (Ativan Inj) 2 mg Q15M PRN IV PUSH 02/24/17 18:15 (Librium) 25 mg TID PRN PO 02/25/17 16:45 02/26/17 12:35 (Dilantin) 100 mg Q8HR PO 02/25/17 22:00 02/28/17 04:21 (Lactulose Liq) 30 ml TID PO 02/26/17 13:00 02/28/17 09:00 A/P Assessment and Plan 1. Ruled out Ischemic Stroke 2. Post ictal states/Seizure Disorder, status post Fosphenytoin 1 gram loading dose and continue Dilantin 100 mg TID Seizure precautions and fall precautions, Telemetry, PT, OT and Speech Therapy, CT brain did not revealed pathology, Neurology specialist following, switch Cerebyx to by mouth Dilantin. 3. Severe medical non compliance. 4. ETOH abuse, continue Thiamine, Multivitamins, Folic Acid, CIWA protocol. strongly recommended to stop drinking behavior his son states he won't stop drinking alcohol. continue CIWA protocol. 5. Rhabdomyolysis continue IV fluids may need to increase IV fluids to 100 ml per hour. CK level 393 trending down fast. 6. electrolyte derangement replaced DVT prophylaxisLovenox. Code Status Full Code Discussed Condition With patient and Nurse Discharge Planning Expected for tomorrow Willie Ocasio MD Feb 28, 2017 09:51
[2017-02-28 12:37] VITALS: BP 129/71; PULSE 85; RESP 18; TEMP 97.8; O2SAT 98
[2017-02-28] MEDS: ENOXAPARIN SODIUM 40 MG/0.4 ML SYRINGE SQ SCH (14:10)
[2017-02-28 16:19] VITALS: BP 129/64; PULSE 81; RESP 18; TEMP 95.8; O2SAT 98
[2017-02-28] MEDS: LORazepam 2 MG/ML VIAL IV PUSH PRN (16:50)
[2017-02-28] MEDS: MULTIVITAMIN INJ 10 ML, FOLIC ACID INJ 1 MG in SODIUM CHLORID 0.9% 500 ML INJ 500 ML IV SCH (22:17)
[2017-02-28] MEDS: PRAVASTATIN SOD 40 MG TAB PO SCH (22:18)
[2017-03-01] VITALS (7 sets, daily range): BP systolic 118–136; BP diastolic 67–82; PULSE 62–83; RESP 16–20; TEMP 96.6–98.2; O2SAT 96–98
[2017-03-01] MEDS: SODIUM CHLORIDE 0.9% FLUSH 10 ML FLUSH IV FLUSH PRN ×2 (01:16→04:39)
[2017-03-01] MEDS: LORazepam 2 MG/ML VIAL IV PUSH PRN ×2 (01:16→04:39)
[2017-03-01] MEDS: SODIUM CHLOR 0.9% 1000 ML INJ 1,000 ML IV SCH ×4 (03:39→23:39)
[2017-03-01] MEDS: PHENYTOIN SODIUM 100 MG CAP PO SCH ×3 (04:52→22:00)
[2017-03-01] MEDS: INSULIN ASPART SUPPLEMENTAL SCALE SQ SCH ×4 (07:00→21:00)
[2017-03-01] MEDS: SODIUM CHLORIDE 0.9% FLUSH 10 ML FLUSH IV FLUSH SCH ×2 (09:00→21:40)
--- NOTE | 2017-03-01 09:17 | HHI.PR ---
Subjective Remarks This is a pleasant 71 year old male who has a history of dementia and alcoholism who presents to the emergency department having been found by his family on a couch incontinent of urine, sleepy, appearing to have had a seizure. Patient has a history of seizures in the past. He is supposed to be on Dilantin. He drinks alcohol every day. EMS reports that both the patient and his son were poor historians. Seen in Emergency room not able to take much history from the patient, he has history of seizure, Non compliance and ETOHism. 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 he had one Gram of Fosphenytoin, will continue Dilantin. Neurology specialist consult. he has Aphasia asked for Neurology specialist consult 02/25: Seen in the present of his Son Mr. Kadeem Perez, patient improving condition, continue CIWA protocol added Librium and following Neurology specialist following. 02/26: Patient stable no complaint, alert and oriented x 3. added Lactulose to avoid Ammonia level accumulation 02/27: In his room in the presence of [employer] TE[employer] that is feeding him, he is oriented x 3 , is able to tell me where he is, the state, but not the date eating well, continue present care by now and follow 02/28: Seen in his bedroom, stable continue on CIWA protocol, alert and oriented. will follow OT and PT evaluations for probable discharge tomorrow. 03/01: Stable in his bedroom, receiving Ativan by CIWA protocol but is too sleepy will decrease the dosages of Ativan and follow on lower dose try to get him up to work with Physical Therapy, No Nausea, vomit or diarrhea. Objective Vital Signs Date Time Temp Pulse Resp B/P Pulse Ox O2 Delivery O2 Flow Rate FiO2 03/01/17 08:00 98.0 66 18 118/67 98 03/01/17 04:00 97.7 83 20 134/79 97 03/01/17 00:00 97.5 76 20 135/79 96 02/28/17 16:19 95.8 81 18 129/64 98 02/28/17 12:37 97.8 85 18 129/71 98 I/O 02/28/17 02/28/17 02/28/17 03/01/17 03/01/17 03/01/17 07:00 15:00 23:00 07:00 15:00 23:00 Intake Total 120 ml 120 ml Balance 120 ml 120 ml Intake Oral 120 ml 120 ml # Voids 3 1 2 # Bowel Movements 0 1 1 Result Diagram: 02/27/17 0820 Imaging Last Impressions Head Magnetic Resonance Angiography 02/24/17 0000 Signed Impressions: Service Date/Time: Friday, February 24, 2017 16:24 - CONCLUSION: Chronic atherosclerotic changes of multiple small vessel branches bilaterally. Rl Amaro MD Head CT 02/24/17 0000 Signed Impressions: Service Date/Time: Friday, February 24, 2017 09:13 - CONCLUSION: 1. Slight atrophic and small vessel ischemic changes without any evidence for acute hemorrhage or mass effect. 2. Dislocated left optical lens. Rl Amaro MD Carotid Artery Ultrasound 02/24/17 0000 Signed Impressions: Service Date/Time: Friday, February 24, 2017 22:52 - CONCLUSION: Normal examination. Pankaj Fong MD Procedures No procedures performed. Other Results Laboratory Tests Test 02/24/17 02/25/17 02/27/17 09:40 07:16 08:20 Hemoglobin A1c 4.6 % Troponin I LESS THAN 0.02 NG/ML Triglycerides Level 61 MG/DL Cholesterol Level 127 MG/DL LDL Cholesterol 24 MG/DL HDL Cholesterol 91.3 MG/DL Cholesterol/HDL Ratio 1.39 RATIO Phenytoin (Dilantin) Level 13.8 MCG/ML Sodium Level 145 MEQ/L Potassium Level 3.5 MEQ/L Chloride Level 106 MEQ/L Carbon Dioxide Level 30.0 MEQ/L Anion Gap 9 MEQ/L Blood Urea Nitrogen 4 MG/DL Creatinine 0.72 MG/DL Estimat Glomerular Filtration 107 ML/MIN Rate Random Glucose 86 MG/DL Calcium Level 8.6 MG/DL Magnesium Level 1.7 MG/DL Total Creatine Kinase 393 U/L Creatine Kinase MB 4.7 NG/ML Creatine Kinase MB % 1.2 % Objective Remarks GENERAL: No Acute distress. SKIN: Focused skin assessment warm and dry. HEAD: Atraumatic. Normocephalic. EYES: Pupils equal and round. No injection or drainage. ENT: Moist mucous membranes NECK: Trachea midline. CARDIOVASCULAR: Tachycardic. No murmur appreciated. RESPIRATORY: Clear to auscultation. Breath sounds equal bilaterally. GASTROINTESTINAL: Abdomen soft, non-tender, nondistended. MUSCULOSKELETAL: No obvious deformities. NEUROLOGICAL: Lethargic, awake and is able to answer but not oriented. PSYCHIATRIC: Good mood Medications and IVs Current Medications Medications (Trade) Dose Ordered Sig/Emily Route Start Time Stop Time Status Last Admin (Aspirin) 325 mg DAILY PO 02/25/17 09:00 02/28/17 09:00 (NS Flush) 2 ml BID IV FLUSH 02/24/17 21:00 02/28/17 09:06 Sodium Chloride 2 ml 2 ml UNSCH PRN IV FLUSH 02/24/17 12:15 03/01/17 04:39 (NS 1000 ml Inj) 1,000 ml @ 100 mls/hr Q10H IV 02/24/17 12:07 02/24/17 14:14 (Pravachol) 40 mg HS PO 02/24/17 21:00 02/28/17 22:18 (D50w (Vial) Inj) 25 ml UNSCH PRN IV PUSH 02/24/17 12:15 (Glucagon Inj) 1 mg UNSCH PRN IM/SQ 02/24/17 12:15 (Lovenox Inj) 40 mg Q24H SQ 02/24/17 13:00 02/28/17 14:10 Lorazepam 1 mg 1 mg Q4H PRN IV PUSH 02/24/17 18:00 (Mvi-12 Inj/ Folvite Inj/NS 500 ml Inj) 510.2 ml @ 125 mls/hr Q24H IV 02/24/17 20:00 03/01/17 19:59 02/28/17 22:17 (Romazicon Inj) 0.2 mg Q1M PRN IV PUSH 02/24/17 18:15 (Ativan) 1 mg Q4H PRN PO 02/24/17 18:15 (Ativan Inj) 1 mg Q4H PRN IV PUSH 02/24/17 18:15 02/26/17 03:33 (Ativan) 2 mg Q2H PRN PO 02/24/17 18:15 (Ativan Inj) 2 mg Q2H PRN IV PUSH 02/24/17 18:15 02/26/17 15:13 (Ativan Inj) 2 mg Q1H PRN IV PUSH 02/24/17 18:15 03/01/17 04:39 (Ativan Inj) 2 mg Q15M PRN IV PUSH 02/24/17 18:15 (Librium) 25 mg TID PRN PO 02/25/17 16:45 02/26/17 12:35 (Dilantin) 100 mg Q8HR PO 02/25/17 22:00 03/01/17 04:52 (Lactulose Liq) 30 ml TID PO 02/26/17 13:00 02/28/17 16:35 A/P Assessment and Plan 1. Ruled out Ischemic Stroke 2. Post ictal states/Seizure Disorder, status post Fosphenytoin 1 gram loading dose and continue Dilantin 100 mg TID Seizure precautions and fall precautions, Telemetry, PT, OT and Speech Therapy, CT brain did not revealed pathology, Neurology specialist following, switch Cerebyx to by mouth Dilantin. 3. Severe medical non compliance. 4. ETOH abuse, continue Thiamine, Multivitamins, Folic Acid, CIWA protocol. strongly recommended to stop drinking behavior his son states he won't stop drinking alcohol. continue CIWA protocol. 5. Rhabdomyolysis continue IV fluids may need to increase IV fluids to 100 ml per hour. CK level 393 trending down fast. 6. electrolyte derangement replaced DVT prophylaxisLovenox. Code Status Full Code Discussed Condition With patient and Nurse Miss Teague appreciated. Discharge Planning Expected for tomorrow Willie Ocasio MD Mar 01, 2017 09:17
[2017-03-01] MEDS: ASPIRIN 325 MG TAB PO SCH (09:48)
[2017-03-01] MEDS: LACTULOSE SYRUP 20 GM/30 ML CUP PO SCH ×3 (09:48→17:42)
[2017-03-01] MEDS: ENOXAPARIN SODIUM 40 MG/0.4 ML SYRINGE SQ SCH (13:13)
[2017-03-01] MEDS: PRAVASTATIN SOD 40 MG TAB PO SCH (21:00)
[2017-03-02] VITALS: BP 126/73; PULSE 70; RESP 18; TEMP 97.6; O2SAT 97
[2017-03-02 04:00] VITALS: BP 107/66; PULSE 71; RESP 18; TEMP 97.5; O2SAT 98
[2017-03-02] MEDS: INSULIN ASPART SUPPLEMENTAL SCALE SQ SCH ×2 (05:25→11:00)
[2017-03-02] MEDS: PHENYTOIN SODIUM 100 MG CAP PO SCH ×2 (05:25→13:33)
[2017-03-02 08:00] VITALS: BP 121/58; PULSE 70; RESP 18; TEMP 97.5; O2SAT 100
[2017-03-02 08:26] LABS: ANION GAP 9 MEQ/L (5-15); AST (GOT) 35 U/L (15-37); BICARBONATE 26.9 MEQ/L (21.0-32.0); BLOOD UREA NITROGEN 2 MG/DL (7-18); CHLORIDE 108 MEQ/L (98-107); GLOMERULAR FILTRATION RATE 127 ML/MIN (>89); POTASSIUM 3.7 MEQ/L (3.5-5.1); SODIUM (NA) 144 MEQ/L (136-145)
[2017-03-02 08:29] LABS: ALKALINE PHOSPHATASE 51 U/L (45-117); ALT (GPT) 22 U/L (12-78); TOTAL BILIRUBIN ADULT 0.4 MG/DL (0.2-1.0)
--- NOTE | 2017-03-02 08:59 | HHI.PR ---
Subjective Remarks This is a pleasant 71 year old male who has a history of dementia and alcoholism who presents to the emergency department having been found by his family on a couch incontinent of urine, sleepy, appearing to have had a seizure. Patient has a history of seizures in the past. He is supposed to be on Dilantin. He drinks alcohol every day. EMS reports that both the patient and his son were poor historians. Seen in Emergency room not able to take much history from the patient, he has history of seizure, Non compliance and ETOHism. 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 he had one Gram of Fosphenytoin, will continue Dilantin. Neurology specialist consult. he has Aphasia asked for Neurology specialist consult 02/25: Seen in the present of his Son Mr. Kadeem Perez, patient improving condition, continue CIWA protocol added Librium and following Neurology specialist following. 02/26: Patient stable no complaint, alert and oriented x 3. added Lactulose to avoid Ammonia level accumulation 02/27: In his room in the presence of [employer] that is feeding him, he is oriented x 3 , is able to tell me where he is, the state, but not the date eating well, continue present care by now and follow 02/28: Seen in his bedroom, stable continue on CIWA protocol, alert and oriented. will follow OT and PT evaluations for probable discharge tomorrow. 03/01: Stable in his bedroom, receiving Ativan by CIWA protocol but is too sleepy will decrease the dosages of Ativan and follow on lower dose try to get him up to work with Physical Therapy, No Nausea, vomit or diarrhea. 03/02: Patient stable reviewed laboratory, no need for restraints, eating well, no Nausea, vomit or diarrhea, alert and oriented x 3, okay to discharge home and discussed with nurse Samantha, also with his Son Mr Kadeem Perez he will come to pick his father. Objective Vital Signs Date Time Temp Pulse Resp B/P Pulse Ox O2 Delivery O2 Flow Rate FiO2 03/02/17 08:00 97.5 70 18 121/58 100 03/02/17 04:00 97.5 71 18 107/66 98 03/02/17 00:00 97.6 70 18 126/73 97 03/01/17 20:00 96.6 80 18 130/82 97 03/01/17 16:00 97.5 68 19 136/72 96 03/01/17 15:00 62 03/01/17 12:00 98.2 75 16 120/80 98 I/O 03/01/17 03/01/17 03/01/17 03/02/17 03/02/17 03/02/17 07:00 15:00 23:00 07:00 15:00 23:00 Intake Total 120 ml 480 ml 240 ml Balance 120 ml 480 ml 240 ml Intake Oral 120 ml 480 ml 240 ml # Voids 2 3 2 # Bowel Movements 1 2 Result Diagram: 03/02/17 0716 Imaging Last Impressions Head Magnetic Resonance Angiography 02/24/17 0000 Signed Impressions: Service Date/Time: Friday, February 24, 2017 16:24 - CONCLUSION: Chronic atherosclerotic changes of multiple small vessel branches bilaterally. Rl Amaro MD Head CT 02/24/17 0000 Signed Impressions: Service Date/Time: Friday, February 24, 2017 09:13 - CONCLUSION: 1. Slight atrophic and small vessel ischemic changes without any evidence for acute hemorrhage or mass effect. 2. Dislocated left optical lens. Rl Amaro MD Carotid Artery Ultrasound 02/24/17 0000 Signed Impressions: Service Date/Time: Friday, February 24, 2017 22:52 - CONCLUSION: Normal examination. Pankaj Fong MD Procedures No procedures performed. Other Results Laboratory Tests Test 02/27/17 03/02/17 08:20 07:16 Total Creatine Kinase 393 U/L Creatine Kinase MB 4.7 NG/ML Creatine Kinase MB % 1.2 % Sodium Level 144 MEQ/L Potassium Level 3.7 MEQ/L Chloride Level 108 MEQ/L Carbon Dioxide Level 26.9 MEQ/L Anion Gap 9 MEQ/L Blood Urea Nitrogen 2 MG/DL Creatinine 0.62 MG/DL Estimat Glomerular Filtration 127 ML/MIN Rate Random Glucose 78 MG/DL Calcium Level 8.5 MG/DL Phosphorus Level 3.2 MG/DL Magnesium Level 2.0 MG/DL Total Bilirubin 0.4 MG/DL Aspartate Amino Transf 35 U/L (AST/SGOT) Alanine Aminotransferase 22 U/L (ALT/SGPT) Alkaline Phosphatase 51 U/L Total Protein 5.6 GM/DL Albumin 2.7 GM/DL Objective Remarks GENERAL: No Acute distress. SKIN: Focused skin assessment warm and dry. HEAD: Atraumatic. Normocephalic. EYES: Pupils equal and round. No injection or drainage. ENT: Moist mucous membranes NECK: Trachea midline. CARDIOVASCULAR: Tachycardic. No murmur appreciated. RESPIRATORY: Clear to auscultation. Breath sounds equal bilaterally. GASTROINTESTINAL: Abdomen soft, non-tender, nondistended. MUSCULOSKELETAL: No obvious deformities. NEUROLOGICAL: Lethargic, awake and is able to answer but not oriented. PSYCHIATRIC: Good mood Medications and IVs Current Medications Medications (Trade) Dose Ordered Sig/Emily Route Start Time Stop Time Status Last Admin (Aspirin) 325 mg DAILY PO 02/25/17 09:00 03/01/17 09:48 (NS Flush) 2 ml BID IV FLUSH 02/24/17 21:00 03/01/17 21:40 Sodium Chloride 2 ml 2 ml UNSCH PRN IV FLUSH 02/24/17 12:15 03/01/17 04:39 (NS 1000 ml Inj) 1,000 ml @ 100 mls/hr Q10H IV 02/24/17 12:07 03/01/17 13:14 (Pravachol) 40 mg HS PO 02/24/17 21:00 03/01/17 21:00 (D50w (Vial) Inj) 25 ml UNSCH PRN IV PUSH 02/24/17 12:15 (Glucagon Inj) 1 mg UNSCH PRN IM/SQ 02/24/17 12:15 (Lovenox Inj) 40 mg Q24H SQ 02/24/17 13:00 03/01/17 13:13 (Romazicon Inj) 0.2 mg Q1M PRN IV PUSH 02/24/17 18:15 (Ativan) 1 mg Q4H PRN PO 02/24/17 18:15 (Librium) 25 mg TID PRN PO 02/25/17 16:45 02/26/17 12:35 (Dilantin) 100 mg Q8HR PO 02/25/17 22:00 03/02/17 05:25 (Lactulose Liq) 30 ml TID PO 02/26/17 13:00 03/01/17 17:42 A/P Assessment and Plan 1. Ruled out Ischemic Stroke 2. Post ictal states/Seizure Disorder, status post Fosphenytoin 1 gram loading dose and continue Dilantin 100 mg TID Seizure precautions and fall precautions, Telemetry, PT, OT and Speech Therapy, CT brain did not revealed pathology, Neurology specialist following, switch Cerebyx to by mouth Dilantin. 3. Severe medical non compliance. 4. ETOH abuse, continue Thiamine, Multivitamins, Folic Acid, CIWA protocol. strongly recommended to stop drinking behavior his son states he won't stop drinking alcohol. continue CIWA protocol. Improved. 5. Rhabdomyolysis continue IV fluids may need to increase IV fluids to 100 ml per hour. CK level 393 trending down fast. 6. electrolyte derangement replaced DVT prophylaxisLovenox. Code Status Full Code Discussed Condition With patient and Nurse Miss Singh and his Son Mr. Kadeem Perez all questions answered to the best of my abilities. Discharge Planning Discharge Home today. Willie Ocasio MD Mar 02, 2017 08:59
[2017-03-02] MEDS: SODIUM CHLOR 0.9% 1000 ML INJ 1,000 ML IV SCH (09:39)
[2017-03-02] MEDS: ASPIRIN 325 MG TAB PO SCH (09:56)
[2017-03-02] MEDS: LACTULOSE SYRUP 20 GM/30 ML CUP PO SCH ×2 (09:57→13:00)
[2017-03-02] MEDS: SODIUM CHLORIDE 0.9% FLUSH 10 ML FLUSH IV FLUSH SCH (09:57)
[2017-03-02 12:00] VITALS: BP 132/61; PULSE 78; RESP 18; TEMP 96.6; O2SAT 98
[2017-03-02] MEDS ORDERED: THIA100T PO (12:14)
[2017-03-02] MEDS ORDERED: FOLI1TAB4 PO (12:14)
[2017-03-02] MEDS ORDERED: MULT1CHW70 PO (12:14)
[2017-03-02] MEDS: ENOXAPARIN SODIUM 40 MG/0.4 ML SYRINGE SQ SCH (13:00)
--- NOTE | 2017-03-02 15:46 | HHI.DS ---
Discharge Summary Admission Date Feb 24, 2017 at 12:07 Discharge Date: Mar 02, 2017 Admitting Diagnosis aphasia (1) Acute respiratory failure ICD Code: J96.00 Diagnosis: Principal (2) Alcohol withdrawal ICD Code: F10.239 Diagnosis: Principal Procedures No procedures performed. Brief History - From Admission This is a pleasant 71 year old male who has a history of dementia and alcoholism who presents to the emergency department having been found by his family on a couch incontinent of urine, sleepy, appearing to have had a seizure. Patient has a history of seizures in the past. He is supposed to be on Dilantin. He drinks alcohol every day. EMS reports that both the patient and his son were poor historians. Seen in Emergency room not able to take much history from the patient, he has history of seizure, Non compliance and ETOHism. 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 he had one Gram of Fosphenytoin, will continue Dilantin. Neurology specialist consult. he has Aphasia asked for Neurology specialist consult CBC/BMP: 03/02/17 0716 Significant Findings Laboratory Tests Test 03/02/17 07:16 Chloride Level 108 MEQ/L (98-107) Blood Urea Nitrogen 2 MG/DL (7-18) Total Protein 5.6 GM/DL (6.4-8.2) Albumin 2.7 GM/DL (3.4-5.0) Imaging Last Impressions Head Magnetic Resonance Angiography 02/24/17 0000 Signed Impressions: Service Date/Time: Friday, February 24, 2017 16:24 - CONCLUSION: Chronic atherosclerotic changes of multiple small vessel branches bilaterally. Rl Amaro MD Head CT 02/24/17 0000 Signed Impressions: Service Date/Time: Friday, February 24, 2017 09:13 - CONCLUSION: 1. Slight atrophic and small vessel ischemic changes without any evidence for acute hemorrhage or mass effect. 2. Dislocated left optical lens. Rl Amaro MD Carotid Artery Ultrasound 02/24/17 0000 Signed Impressions: Service Date/Time: Friday, February 24, 2017 22:52 - CONCLUSION: Normal examination. Pankaj Fong MD PE at Discharge GENERAL: No Acute distress. SKIN: Focused skin assessment warm and dry. HEAD: Atraumatic. Normocephalic. EYES: Pupils equal and round. No injection or drainage. ENT: Moist mucous membranes NECK: Trachea midline. CARDIOVASCULAR: Tachycardic. No murmur appreciated. RESPIRATORY: Clear to auscultation. Breath sounds equal bilaterally. GASTROINTESTINAL: Abdomen soft, non-tender, nondistended. MUSCULOSKELETAL: No obvious deformities. NEUROLOGICAL: Lethargic, awake and is able to answer but not oriented. PSYCHIATRIC: Good mood Hospital Course This is a pleasant 71 year old male who has a history of dementia and alcoholism who presents to the emergency department having been found by his family on a couch incontinent of urine, sleepy, appearing to have had a seizure. Patient has a history of seizures in the past. He is supposed to be on Dilantin. He drinks alcohol every day. EMS reports that both the patient and his son were poor historians. Seen in Emergency room not able to take much history from the patient, he has history of seizure, Non compliance and ETOHism. 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 he had one Gram of Fosphenytoin, will continue Dilantin. Neurology specialist consult. he has Aphasia asked for Neurology specialist consult 02/25: Seen in the present of his Son Mr. Kadeem Perez, patient improving condition, continue CIWA protocol added Librium and following Neurology specialist following. 02/26: Patient stable no complaint, alert and oriented x 3. added Lactulose to avoid Ammonia level accumulation 02/27: In his room in the presence of OVERHEAD CRANE TECHNICIAN that is feeding him, he is oriented x 3 , is able to tell me where he is, the state, but not the date eating well, continue present care by now and follow 02/28: Seen in his bedroom, stable continue on CIWA protocol, alert and oriented. will follow OT and PT evaluations for probable discharge tomorrow. 03/01: Stable in his bedroom, receiving Ativan by CIWA protocol but is too sleepy will decrease the dosages of Ativan and follow on lower dose try to get him up to work with Physical Therapy, No Nausea, vomit or diarrhea. 03/02: Patient stable reviewed laboratory, no need for restraints, eating well, no Nausea, vomit or diarrhea, alert and oriented x 3, okay to discharge home and discussed with nurse Miss Singh, also with his Son Mr Kadeem Perez he will come to pick his father. Assessment and Plan 1. Ruled out Ischemic Stroke 2. Post ictal states/Seizure Disorder, status post Fosphenytoin 1 gram loading dose and continue Dilantin 100 mg TID Seizure precautions and fall precautions, Telemetry, PT, OT and Speech Therapy, CT brain did not revealed pathology, Neurology specialist following, switch Cerebyx to by mouth Dilantin. 3. Severe medical non compliance. 4. ETOH abuse, continue Thiamine, Multivitamins, Folic Acid, CIWA protocol. strongly recommended to stop drinking behavior his son states he won't stop drinking alcohol. continue CIWA protocol. Improved. 5. Rhabdomyolysis continue IV fluids may need to increase IV fluids to 100 ml per hour. CK level 393 trending down fast. 6. electrolyte derangement replaced DVT prophylaxisLovenox. Code Status Full Code Discussed Condition With patient and Nurse Miss Singh and his Son Mr. Kadeem Perez all questions answered to the best of my abilities. Discharge Planning Discharge Home today. Pt Condition on Discharge: Good Discharge Disposition: Discharge Home Discharge Time: > 30 minutes Discharge Instructions DIET: Follow Instructions for: As Tolerated, No Restrictions Activities you can perform: Regular-No Restrictions Willie Ocasio MD Mar 02, 2017 15:46
== END 2017-03-02 14:18 | disposition home or self-care (01) | DRG 101 ==
LOC: NEPE 08:26 → NEDA 12:07 → N05B 17:57
PROVIDERS: ADMIT Internal Medicine; ATTEND Internal Medicine
DX: G40.909 Epilepsy, unspecified, not intractable, without status epilepticus (principal); E46 Unspecified protein-calorie malnutrition; Z68.1 Body mass index [BMI] 19.9 or less, adult; M62.82 Rhabdomyolysis; F03.90 Unspecified dementia, unspecified severity, without behavioral disturbance, psychotic disturbance, mood disturbance, and anxiety; R47.01 Aphasia; E87.8 Other disorders of electrolyte and fluid balance, not elsewhere classified; F10.10 Alcohol abuse, uncomplicated; Z91.19 Patient's noncompliance with other medical treatment and regimen; F17.210 Nicotine dependence, cigarettes, uncomplicated; Z87.820 Personal history of traumatic brain injury
CPT/HCPCS: 70450; 70544; 70551; 76937; 80048; 80053; 80061; 80185; 80307; 81001; 82550; 82552; 82607; 82746; 82948; 83036; 83735; 84100; 84439; 84443; 84484; 85025; 93306; 93880; 95819; 96365; 96366; 96375; J1650; J2060; J3411; J3475; J3480; J7030; J7040; Q2009

== ENCOUNTER 2017-04-14 14:25 | Emergency (ER) | payer OTHER ==
[~2017-04-14] VITALS: Ht 167.6 cm; Wt 55.0 kg
[~2017-04-14 14:25] MED LIST: FOLI1TAB4 PO; MULT1CHW70 PO; PHEN100C PO; THIA100T PO
[2017-04-14] MEDS ORDERED: SODIUM CHLOR 0.9% 1000 ML INJ 1,000 ML IV ONE (14:57)
[2017-04-14] MEDS ORDERED: THIAMINE INJ 100 MG in SODIUM CHLORIDE 0.9% INJ 100 ML IV ONE (15:00)
[2017-04-14] MEDS ORDERED: ONDANSETRON HCL 4 MG/2 ML VIAL IV PUSH ONE (15:00)
[2017-04-14] MEDS ORDERED: LORazepam 2 MG/ML VIAL IVS ONE (15:00)
[2017-04-14 15:07] VITALS: BP 116/78; PULSE 99; RESP 22; TEMP 98.8; O2SAT 95; O2SAT 96
--- NOTE | 2017-04-14 15:41 | RADRPT ---
EXAM DATE/TIME: 04/14/2017 15:28 [facility] COMPARISON: CT BRAIN W/O CONTRAST, February 24, 2017, 9:13. INDICATIONS : Cephalgia and altered mental status RADIATION DOSE: 33.18 CTDIvol (mGy) MEDICAL HISTORY : Seizures. Dementia. Hygroma SURGICAL HISTORY : Craniotomy ENCOUNTER: Initial ACUITY: 1 day PAIN SCALE: 0/10 LOCATION: TECHNIQUE: Multiple contiguous axial images were obtained of the head. Using automated exposure control and adj ustment of the mA and/or kV according to patient size, radiation dose was kept as low as reasonably a chievable to obtain optimal diagnostic quality images. FINDINGS: CEREBRUM: The ventricles are normal for age. No evidence of midline shift, mass lesion, hemorrhage or acute in farction. No extra-axial fluid collections are seen. POSTERIOR FOSSA: The cerebellum and brainstem are intact. The 4th ventricle is midline. The cerebellopontine angle i s unremarkable. EXTRACRANIAL: The visualized portion of the orbits is intact. SKULL: The calvaria is intact. No evidence of skull fracture. CONCLUSION: Negative for acute process. Jarred Anaya MD FACR on April 14, 2017 at 15:37 Board Certified Radiologist. This report was verified electronically.
[2017-04-14 15:47] LABS: AUTOMATED NEUTROPHIL # 6.3 TH/MM3 (1.8-7.7); BASOPHIL % 0.3 % (0.0-2.0); HEMATOCRIT 40.3 % (39.0-51.0); HEMO FLAGS DIFF FINAL; LYMPH % 3.7 % (9.0-44.0); LYMPHOCYTE # 0.3 TH/MM3 (1.0-4.8); MEAN CELL VOLUME 103.7 FL (80.0-100.0); MEAN CORPUSCULAR HEMOGLOBIN 35.6 PG (27.0-34.0); MEAN CORPUSCULAR HGB CONC 34.3 % (32.0-36.0); MONO % 7.4 % (0.0-8.0); NEUT % 88.6 % (16.0-70.0); PLATELET COUNT 173 TH/MM3 (150-450); RED BLOOD COUNT 3.89 MIL/MM3 (4.50-5.90); RED CELL DISTRIBUTION WIDTH 15.5 % (11.6-17.2); WHITE BLOOD COUNT 7.1 TH/MM3 (4.0-11.0)
--- NOTE | 2017-04-14 15:55 | PD ---
HPI Chief Complaint: Seizure Time Seen by Provider: 15:52 Travel History International Travel<30 days: No Contact w/Intl Traveler<30days: No Traveled to known affect area: No History of Present Illness HPI 70-year-old male that presents to the ED for evaluation of seizure. Patient has a chronic history of seizures, alcohol abuse and dementia. Patient is a poor historian. Patient has recurrent history of noncompliance. Patient has been here multiple times with same symptoms. Patient states that he doesn't take any medications because "I don't believe I need". Patient completely denies drinking alcohol today but ambulance tell us that there was a big bottle of wine to had been empty recently. She denies any pain of any kind. Family witnessed the seizure and called the ambulance who brought him here. Patient minimizes every symptom. No sign of head injury. Per ambulance patient has been alert and oriented. No obvious arm or leg pain. No obvious injury. No urinary symptoms. He does smell heavily of alcohol. Again history is somewhat limited because of patient's intoxication and dementia. Seizure lasted less than 5 minutes. PFSH Past Medical History Depression: Yes Cancer: No Cardiovascular Problems: No Diminished Hearing: No Endocrine: No Gastrointestinal Disorders: No Genitourinary: No Immune Disorder: No Implanted Vascular Access Dvce: No Musculoskeletal: No Neurologic: Yes (LEFT SUBDURAL HYGROMAS WITH CRANIOTOMY NOV 2012) Reproductive: No Respiratory: No Seizures: Yes Past Surgical History Neurologic Surgery: Yes Other Surgery: Yes Social History Alcohol Use: Yes Tobacco Use: No (UNKNOWN) Substance Use: No Allergies-Medications (Allergen,Severity, Reaction): Coded Allergies: No Known Allergies (Unverified , 02/24/17) UNOBTAINABLE (Unverified , 07/11/16) Reported Meds & Prescriptions Reported Meds & Active Scripts Active Folic Acid 20 Mg Cap 1 Cap PO DAILY Phenytoin Extended 100 Mg Cap 100 Mg PO TID Multivitamin Adult (Multiple Vitamins W/ Minerals) 1 Chw Chw 1 Cap PO DAILY . Folate (Folic Acid) 1 Mg Tab 1 Mg PO DAILY . Thiamine (Thiamine HCl) 100 Mg Tab 100 Mg PO DAILY . Review of Systems ROS Limitations: Intoxication, Poor Historian Except as stated in HPI: all other systems reviewed are Neg Physical Exam Exam Limitations: Intoxication, Poor Historian Narrative GENERAL: SKIN: Warm and dry. HEAD: Atraumatic. Normocephalic. EYES: Pupils equal and round 4 mm reactive to light and accommodation. No scleral icterus. No injection or drainage. ENT: No nasal bleeding or discharge. Mucous membranes pink and moist. Tongue is midline. No uvula deviation. NECK: Trachea midline. No JVD. CARDIOVASCULAR: Regular rate and rhythm. No murmurs, S3, S4. RESPIRATORY: No accessory muscle use. Clear to auscultation. Breath sounds equal bilaterally. GASTROINTESTINAL: Abdomen soft, non-tender, nondistended. Hepatic and splenic margins not palpable. MUSCULOSKELETAL: Extremities without clubbing, cyanosis, or edema. No obvious deformities. Full range of motion of the upper and lower extremities bilaterally. 2+ pulses bilaterally. NEUROLOGICAL: Awake and alert. No obvious cranial nerve deficits. Motor grossly within normal limits. Five out of 5 muscle strength in the arms and legs. Normal speech. PSYCHIATRIC: Appropriate mood and affect; insight and judgment normal. Data Data Last Documented VS Vital Signs Date Time Temp Pulse Resp B/P Pulse Ox O2 Delivery O2 Flow Rate FiO2 04/14/17 15:07 98.8 99 22 116/78 96 Room Air Orders Complete Blood Count With Diff (04/14/17 14:57) Alcohol (Ethanol) (04/14/17 14:57) Phenytoin (Dilantin) (04/14/17 14:57) Drug Screen, Random Urine (04/14/17 14:57) Electrocardiogram (04/14/17 ) Ct Brain W/O Iv Contrast(Rout) (04/14/17 ) Blood Glucose (04/14/17 14:57) Ecg Monitoring (04/14/17 14:57) Iv Access Insert/Monitor (04/14/17 14:57) Oximetry (04/14/17 14:57) Comprehensive Metabolic Panel (04/14/17 14:57) Sodium Chlor 0.9% 1000 Ml Inj (Ns 1000 M (04/14/17 14:57) Lorazepam Inj (Ativan Inj) (04/14/17 15:00) Thiamine Inj (Thiamine Inj) (04/14/17 15:00) Urinalysis - C+S If Indicated (04/14/17 14:57) Ondansetron Inj (Zofran Inj) (04/14/17 15:00) Phenytoin Inj (Dilantin Inj) (04/14/17 16:30) Labs Laboratory Tests Test 04/14/17 15:25 White Blood Count 7.1 TH/MM3 Red Blood Count 3.89 MIL/MM3 Hemoglobin 13.8 GM/DL Hematocrit 40.3 % Mean Corpuscular Volume 103.7 FL Mean Corpuscular Hemoglobin 35.6 PG Mean Corpuscular Hemoglobin 34.3 % Concent Red Cell Distribution Width 15.5 % Platelet Count 173 TH/MM3 Mean Platelet Volume 6.9 FL Neutrophils (%) (Auto) 88.6 % Lymphocytes (%) (Auto) 3.7 % Monocytes (%) (Auto) 7.4 % Eosinophils (%) (Auto) 0.0 % Basophils (%) (Auto) 0.3 % Neutrophils # (Auto) 6.3 TH/MM3 Lymphocytes # (Auto) 0.3 TH/MM3 Monocytes # (Auto) 0.5 TH/MM3 Eosinophils # (Auto) 0.0 TH/MM3 Basophils # (Auto) 0.0 TH/MM3 CBC Comment DIFF FINAL Differential Comment Sodium Level 139 MEQ/L Potassium Level 4.4 MEQ/L Chloride Level 103 MEQ/L Carbon Dioxide Level 28.7 MEQ/L Anion Gap 7 MEQ/L Blood Urea Nitrogen 10 MG/DL Creatinine 0.98 MG/DL Estimat Glomerular Filtration 75 ML/MIN Rate Random Glucose 142 MG/DL Calcium Level 9.1 MG/DL Total Bilirubin 1.5 MG/DL Aspartate Amino Transf 162 U/L (AST/SGOT) Alanine Aminotransferase 55 U/L (ALT/SGPT) Alkaline Phosphatase 75 U/L Total Protein 6.9 GM/DL Albumin 3.7 GM/DL Phenytoin (Dilantin) Level LESS THAN 0.4 MCG/ML Ethyl Alcohol Level 5 MG/DL [facility] Medical Decision Making Medical Screen Exam Complete: Yes Emergency Medical Condition: Yes Medical Record Reviewed: Yes Interpretation(s) Last Impressions Head CT 04/14/17 0000 Signed Impressions: Service Date/Time: Friday, April 14, 2017 15:28 - CONCLUSION: Negative for acute process. Jarred Anaya MD FACR CBC & BMP Diagram 04/14/17 15:25 alcohol negative LFTS WNL phenytoin negative Differential Diagnosis Seizure disorder versus noncompliance versus status epilepticus versus alcohol abuse versus alcohol withdrawal versus electrolyte abnormality Narrative Course 71-year-old male that presents to the ED for evaluation of seizure. Patient was properly examined and was found to have signs and symptoms very consistent appears to be seizure and noncompliance. Labs and imaging ordered. Patient was given antiemetics as well as fluids here. Labs and imaging showed sign of acute disease. Alcohol and phenytoin are negative. Case was discussed in my attending who is in agreement with plan. She recommends loading dose and discharged home. Patient was told this and agrees with this plan. Patient has had no seizures here in the ED. Patient was given prescription for phenitoin as well as folic acid. Recommendation close follow with PCP. See ED worsening symptoms. Diagnosis Primary Impression: Seizure disorder Additional Impression: Noncompliance Patient Instructions: General Instructions Additional Instructions: Take your medications as prescribed. Follow with PCP. See ED for worsening symptoms. Med/Other Pt SpecificInfo: Prescription(s) given Scripts Folic Acid 20 Mg Cap1 Cap PO DAILY #30 Prov:Janel Blanca MD 04/14/17 Phenytoin Extended 100 Mg [id number] Mg PO TID #90 CAP Ref 0 Prov:Janel Blanca MD 04/14/17 Disposition: 01 DISCHARGE HOME Condition: Stable Delonte Nunez Apr 14, 2017 15:55
[2017-04-14 16:00] LABS: ALKALINE PHOSPHATASE 75 U/L (45-117); TOTAL BILIRUBIN ADULT 1.5 MG/DL (0.2-1.0)
[2017-04-14 16:07] LABS: ANION GAP 7 MEQ/L (5-15)
[2017-04-14 16:08] LABS: ALT (GPT) 55 U/L (12-78); AST (GOT) 162 U/L (15-37); BICARBONATE 28.7 MEQ/L (21.0-32.0); BLOOD UREA NITROGEN 10 MG/DL (7-18); CHLORIDE 103 MEQ/L (98-107); GLOMERULAR FILTRATION RATE 75 ML/MIN (>89); POTASSIUM 4.4 MEQ/L (3.5-5.1); SODIUM (NA) 139 MEQ/L (136-145)
[2017-04-14] MEDS ORDERED: PHENYTOIN INJ 1,000 MG in SODIUM CHLORIDE 0.9% INJ 100 ML IV ONE (16:30)
[2017-04-14] MEDS ORDERED: FOLI20CA PO (16:35)
[2017-04-14] MEDS ORDERED: PHEN100C PO (16:35)
--- NOTE | 2017-04-14 16:54 | PD ---
Data Data Last Documented VS Vital Signs Date Time Temp Pulse Resp B/P Pulse Ox O2 Delivery O2 Flow Rate FiO2 04/14/17 15:07 98.8 99 22 116/78 96 Room Air Orders Complete Blood Count With Diff (04/14/17 14:57) Alcohol (Ethanol) (04/14/17 14:57) Phenytoin (Dilantin) (04/14/17 14:57) Drug Screen, Random Urine (04/14/17 14:57) Electrocardiogram (04/14/17 ) Ct Brain W/O Iv Contrast(Rout) (04/14/17 ) Blood Glucose (04/14/17 14:57) Ecg Monitoring (04/14/17 14:57) Iv Access Insert/Monitor (04/14/17 14:57) Oximetry (04/14/17 14:57) Comprehensive Metabolic Panel (04/14/17 14:57) Sodium Chlor 0.9% 1000 Ml Inj (Ns 1000 M (04/14/17 14:57) Lorazepam Inj (Ativan Inj) (04/14/17 15:00) Thiamine Inj (Thiamine Inj) (04/14/17 15:00) Urinalysis - C+S If Indicated (04/14/17 14:57) Ondansetron Inj (Zofran Inj) (04/14/17 15:00) Phenytoin Inj (Dilantin Inj) (04/14/17 16:30) Labs Laboratory Tests Test 04/14/17 15:25 White Blood Count 7.1 TH/MM3 Red Blood Count 3.89 MIL/MM3 Hemoglobin 13.8 GM/DL Hematocrit 40.3 % Mean Corpuscular Volume 103.7 FL Mean Corpuscular Hemoglobin 35.6 PG Mean Corpuscular Hemoglobin 34.3 % Concent Red Cell Distribution Width 15.5 % Platelet Count 173 TH/MM3 Mean Platelet Volume 6.9 FL Neutrophils (%) (Auto) 88.6 % Lymphocytes (%) (Auto) 3.7 % Monocytes (%) (Auto) 7.4 % Eosinophils (%) (Auto) 0.0 % Basophils (%) (Auto) 0.3 % Neutrophils # (Auto) 6.3 TH/MM3 Lymphocytes # (Auto) 0.3 TH/MM3 Monocytes # (Auto) 0.5 TH/MM3 Eosinophils # (Auto) 0.0 TH/MM3 Basophils # (Auto) 0.0 TH/MM3 CBC Comment DIFF FINAL Differential Comment Sodium Level 139 MEQ/L Potassium Level 4.4 MEQ/L Chloride Level 103 MEQ/L Carbon Dioxide Level 28.7 MEQ/L Anion Gap 7 MEQ/L Blood Urea Nitrogen 10 MG/DL Creatinine 0.98 MG/DL Estimat Glomerular Filtration 75 ML/MIN Rate Random Glucose 142 MG/DL Calcium Level 9.1 MG/DL Total Bilirubin 1.5 MG/DL Aspartate Amino Transf 162 U/L (AST/SGOT) Alanine Aminotransferase 55 U/L (ALT/SGPT) Alkaline Phosphatase 75 U/L Total Protein 6.9 GM/DL Albumin 3.7 GM/DL Phenytoin (Dilantin) Level LESS THAN 0.4 MCG/ML Ethyl Alcohol Level 5 MG/DL MDM Supervised Visit with CHERYL: Yes Narrative Course The history, exam, and medical decision-making in the associated midlevel provider note were completed with my assistance. I reviewed and agree with the findings presented. I attest that I had a [id number] encounter with the patient on the same day, and personally performed and documented my assessment and findings in the medical record. *My assessment and Findings: This is a 71 year old male who presents to the emergency department having had a witnessed seizure. He has a history of dementia and alcoholism and has a known seizure disorder. He is non-compliant. He has a subtherapeutic dilantin level here. He appears to be at his neurologic baseline. Pt. will be discharged home following dilantin load. Diagnosis Primary Impression: Seizure disorder Additional Impression: Noncompliance Patient Instructions: General Instructions Additional Instruction: Take your medications as prescribed. Follow with PCP. See ED for worsening symptoms. Scripts Folic Acid 20 Mg Cap1 Cap PO DAILY #30 Prov:Janel Blanca MD 04/14/17 Phenytoin Extended 100 Mg [id number] Mg PO TID #90 CAP Ref 0 Prov:Janel Blanca MD 04/14/17 Disposition: 01 DISCHARGE HOME Condition: Stable Janel Blanca MD Apr 14, 2017 16:54
== END 2017-04-14 20:03 | disposition home or self-care (01) ==
LOC: NEPD 14:25
DX: G40.909 Epilepsy, unspecified, not intractable, without status epilepticus (principal); Z91.19 Patient's noncompliance with other medical treatment and regimen
CPT/HCPCS: 70450; 80053; 80185; 80307; 85025; 96365; 96367; 96375; 99285; J1165; J2060; J2405; J3411; J7030